=== PATIENT | male | born 1965 | race Caucasian/White ===

== ENCOUNTER → 2024-01-14 09:38 | Outpatient (REF) | payer BC, SELFPAY | LOC: RCS 09:38 | PROVIDERS: REFERRING PHYSICIAN Internal Medicine Cardiovascular Disease | DX: R01.1 Cardiac murmur, unspecified (principal) | CPT/HCPCS: 93225; 93226 ==

== ENCOUNTER → 2024-03-02 08:28 | Outpatient (REF) | payer BC, SELFPAY ==
--- NOTE | 2024-03-02 10:03 | CARDSERVLU ---
Addendum entered by Shavon Barcenas RN 03/02/24 13:37:
Procedure completed by Negin MARTINEZ on 03/02 24 ( entire previous note by Kelsey Barcenas RN).
Original Note:
Echocardiogram with Lumason completed after protocol screening completed. Allergies verified.
Patent IV site: __Right forearm 22 G PC___
IV site flushed with 0.9% NaCl pre and post administration.
Diluted bolus method utilized to enhance visualization of ventricular christian.
Total volume given: __4__ mL
Patient tolerated all procedures well without complications.
Heplock D/C ed, site clear, no redness, no edema. Pressure held for few minutes, no bleeding, 2x2 applied and taped. Pt offers no complaints.
== END ==
LOC: RCS 08:28
PROVIDERS: ATTENDING PHYSICIAN Internal Medicine Cardiovascular Disease; FAMILY PHYSICIAN Student in an Organized Health Care Education/Training Program
DX: I42.2 Other hypertrophic cardiomyopathy (principal); I35.0 Nonrheumatic aortic (valve) stenosis
CPT/HCPCS: 93306; Q9950

== ENCOUNTER → 2024-03-20 12:51 | Outpatient (REF) | payer BC, SELFPAY | LOC: RAD 12:51 | DX: F17.210 Nicotine dependence, cigarettes, uncomplicated (principal); Z72.0 Tobacco use | CPT/HCPCS: 71271 ==

== ENCOUNTER 2024-05-15 07:49 | Day surgery (SDC) | payer MEDICARE, BC, SELFPAY ==
[2024-05-15] VITALS (12 sets, daily range): BP systolic 110–137; BP diastolic 58–112; BMI 41.0
[2024-05-15 08:25] LABS: Hematocrit 44.9 % (39.0-52.0); Mean Corp Hgb Conc. 33.4 g/dL (33.0-37.0); Mean Corpuscular Hgb 29.2 pg (27.0-31.0); Mean Corpuscular Volume 87.4 fL (80.0-94.0); Mean Platelet Volume 10.1 fL (7.4-10.4); Platelet Count 273 10^3/uL (130-400); Red Blood Cell Count 5.14 10^6/uL (4.70-6.10); Red Cell Dist. Width 16.2 % (11.5-14.5); White Blood Cell Count 12.9 10^3/uL (4.8-10.8)
[2024-05-15 08:33] LABS: INR 0.98; PT 13.3 Sec (11.4-14.6)
[2024-05-15 08:34] LABS: APTT 28.3 Sec (23.4-35.0)
[2024-05-15 08:37] LABS: Blood Urea Nitrogen 14 mg/dl (9-20); Calcium 9.3 mg/dl (8.4-10.2); Carbon Dioxide 29 mmol/L (22-30); Chloride 101 mmol/L (98-107); Estimated Creatinine Clearance 92 ml/min; Glucose 99 mg/dl (70-99); Potassium 5.4 mmol/L (3.5-5.1); Sodium 139 mmol/L (135-145); eGFR > 60.00
[2024-05-15] MEDS: NSS 394 ML IV (09:16)
[2024-05-15] MEDS: LOW STRENGTH ASPIRIN 324 MG PO (09:19)
--- NOTE | 2024-05-15 14:16 | ITS.CL.CATH ---
[facility] - Catheterization
Cardiac Catheterization
Procedure Report:
RIGHT AND LEFT HEART STUDY
Date of Procedure: May 15, 2024
Referring: Dr. Woody Vora
PROCEDURES:
1. Left heart catheterization with coronary angiography
2. Hemodynamic assessment of aortic stenosis with [place] dual lumen catheter then with an AL 2/radial artery simultaneous measurement with gradual pullback from the LV apex through the aortic valve to assess for significant intraventricular
gradient
3. Ascending aortography
INDICATION: This is a 58-year-old gentleman with combined aortic stenosis and aortic insufficiency. He is followed by Dr. Vora and a recent transthoracic echocardiogram was notable for an estimated ejection fraction is 55-60% and moderate
concentric LVH. The aortic valve was thickened and calcified. The peak velocity across the aortic valve measured 4.2 m/s and the mean aortic valve gradient was 40 mmHg with a dimensionless index of 0.32 and an LVOT diameter measuring 2.3 cm. The
high gradients were more perplexing given an estimated aortic valve area by the continuity equation of 1.3 cm�. There was mild to moderate aortic insufficiency. He was also noted to have mild to moderate aortic insufficiency and there was a
question of a intraventricular gradient.
ACCESS: Right radial artery, 6 Icelandic sheath in right common femoral vein, 5 Icelandic sheath
HEMODYNAMICS : mmHg
RA (m) : 10
RV (s/d) : 35/13, 16
PA (s/d, m) : 32/22, 26
PCWP (m) : 15
AO (s/d, m) : 107/62, 81
LV (s/d) : 142/9
LVEDP : 18
Estimated Radha Cardiac Output: 4.9 L / min and Cardiac Index: 2.0 L/ min / m-2
Pulmonary vascular resistance: 2.24 Wood units or 179.6 [id number]-ii(-5)
Systemic vascular resistance: 14.5 Wood units or 1159 oppgc-pag-xx(-5)
AORTIC VALVE:
Mean Gradient: 40 mmHg
Aortic Valve Area: 0.96 cm�
CORONARY FINDINGS :
Dominance: Right
LEFT MAIN: The left main was cannulated with a JL 5. There are minor irregularities in the mid left main
LEFT ANTERIOR DESCENDING: The LAD arises normally. There is moderate coronary ectasia in the proximal to mid LAD with a 60% stenosis near the origin of the first septal electric meter technician. The mid to distal LAD tapers to a small caliber vessel approaching
the apex.
CIRCUMFLEX: The circumflex is a large-caliber nondominant vessel. OM1 is small. OM 2 is a moderate caliber vessel and the circumflex terminates in a moderate caliber OM 3.
RIGHT CORONARY ARTERY: The right coronary artery is a large-caliber vessel with significant coronary ectasia over its course. The PDA is large. The posterolateral branch is small.
ASCENDING AORTOGRAPHY: Ascending aortography was performed to assess severity of aortic insufficiency. 3+ aortic insufficiency is present
RADIATION SUMMARY: Fluoro Time (min): 11.0, Dose (mGy): 900, DAP (Gy.cm2) : 70.8
CONCLUSIONS
1. Combined severe aortic stenosis and moderate aortic insufficiency with a mean aortic valve gradient of 40 mmHg. I did not appreciate a significant subvalvular gradient when using an endhole catheter.
2. Coronary artery disease with significant mid LAD stenosis and ectatic circumflex and RCA
RECOMMENDATIONS
1. Follow-up with CT surgery to discuss aortic valve replacement and bypass grafting
Copy to: Dr. Woody Vora, Dr. Mart De La Paz
== END 2024-05-15 17:30 | disposition home or self-care (01) ==
LOC: CATH 07:49
PROVIDERS: ATTENDING PHYSICIAN Internal Medicine Interventional Cardiology; CONSULT PHYSICIAN Thoracic Surgery (Cardiothoracic Vascular Surgery); FAMILY PHYSICIAN Student in an Organized Health Care Education/Training Program; OTHER PHYSICIAN Internal Medicine Cardiovascular Disease
DX: I35.2 Nonrheumatic aortic (valve) stenosis with insufficiency (principal); I25.10 Atherosclerotic heart disease of native coronary artery without angina pectoris; Z79.82 Long term (current) use of aspirin; Z79.899 Other long term (current) drug therapy; Z79.84 Long term (current) use of oral hypoglycemic drugs
CPT/HCPCS: 93799; 80048; 85027; 85610; 85730; 93460; 93567; C1769; C1894; Q9967

== ENCOUNTER → 2024-06-20 08:12 | Outpatient (REF) | payer MEDICARE, BC, SELFPAY | LOC: RAD 08:12 | PROVIDERS: ATTENDING PHYSICIAN Thoracic Surgery (Cardiothoracic Vascular Surgery); FAMILY PHYSICIAN Student in an Organized Health Care Education/Training Program | DX: I35.0 Nonrheumatic aortic (valve) stenosis (principal); Z01.810 Encounter for preprocedural cardiovascular examination | CPT/HCPCS: 75572; Q9967 ==

== ENCOUNTER 2024-07-02 04:44 | Inpatient (IN) | payer MEDICARE, BC, SELFPAY ==
[2024-06-14 12:08] VITALS: BMI 41.4
[2024-06-14 13:08] LABS: % Eosinophils 3.4 % (0-6); % Immature Granulocytes 0.4 % (0-0.5); % Lymphocytes 27.7 % (20.5-51.1); % Monocytes 4.5 % (1.7-9.3); Absolute Basophils 0.1 10^3/uL (0-0.2); Absolute Eosinophils 0.3 10^3/uL (0-0.7); Absolute Lymphocytes 2.8 10^3/uL (1.2-3.4); Absolute Monocytes 0.5 10^3/uL (0.1-0.6); Absolute Neutrophils 6.4 10^3/uL (1.4-6.5); Hematocrit 40.9 % (39.0-52.0); Hemoglobin 13.9 g/dL (13.0-18.0); Mean Corpuscular Hgb 29.1 pg (27.0-31.0); Mean Corpuscular Volume 85.6 fL (80.0-94.0); Mean Platelet Volume 10.3 fL (7.4-10.4); Nucleated Red Blood Cells % 0 % (-); Platelet Count 273 10^3/uL (130-400); Red Blood Cell Count 4.78 10^6/uL (4.70-6.10); Red Cell Dist. Width 15.4 % (11.5-14.5); White Blood Cell Count 10.1 10^3/uL (4.8-10.8)
[2024-06-14 13:17] LABS: INR 1.02; PT 13.9 Sec (11.4-14.6)
[2024-06-14 13:18] LABS: APTT 29.2 Sec (23.4-35.0)
[2024-06-14 13:26] LABS: Urine Albumin 1+ (Neg - Trace); Urine Bilirubin Negative (Negative); Urine Character Clear (Clear); Urine Color Yellow; Urine Glucose Negative (Negative); Urine Ketone Negative (Negative); Urine Leukocyte 1+ (Negative); Urine Nitrite Negative (Negative); Urine Occult Blood Negative (Negative); Urine Specific Gravity 1.025 (<1.030); Urine Urobilinogen Negative (Neg - 1+)
[2024-06-14 13:27] LABS: ALT (SGPT) 31 U/L (0-50); AST (SGOT) 30 U/L (17-59); Albumin 4.5 g/dl (3.5-5.0); Alkaline Phosphatase 93 U/L (38-126); Blood Urea Nitrogen 14 mg/dl (9-20); Calcium 9.6 mg/dl (8.4-10.2); Carbon Dioxide 25 mmol/L (22-30); Chloride 103 mmol/L (98-107); Direct Bilirubin 0.2 mg/dl (0.0-0.4); Estimated Creatinine Clearance 110 ml/min; Glucose 89 mg/dl (70-99); Potassium 4.4 mmol/L (3.5-5.1); Sodium 136 mmol/L (135-145); Total Bilirubin 0.8 mg/dl (0.2-1.3); Total Protein 7.8 g/dl (6.3-8.2); eGFR > 60.00
[2024-06-14 13:37] LABS: Glycohemoglobin (HgbA1c) 5.7 % (4.0-5.6)
[2024-06-14 13:42] LABS: Urine Mucus Moderate
[2024-06-14 13:43] LABS: Urine Red Blood Cell 0-2 /HPF (0-2); Urine Squamous Cell 16-20 /LPF (Few)
[2024-06-14 13:44] LABS: Urine Bacteria Few (Negative)
--- NOTE | 2024-06-14 14:20 | CM ---
Chart reviewed. Met with the patient and his in PAT. 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 Reviewed preoperative and postoperative instructions and restrictions, along
with showering guidelines. Gave patient 2 soaps. Patient is agreeable to a home visit by CT Transitional RN. Plan is for the patient to return home with CT Transitional RN
[2024-07-02] VITALS (18 sets, daily range): BP systolic 98–155; BP diastolic 72–136; BMI 40.6
[2024-07-02] MEDS: PROTONIX 40 MG PO (05:18)
[2024-07-02] MEDS: MAGNESIUM OXIDE 500 MG PO (05:18)
[2024-07-02] MEDS: LOPRESSOR 25 MG PO (05:18)
[2024-07-02] MEDS: BACTROBAN 2% OINTMENT 1 APPLIC NASAL ×2 (05:18→20:29)
--- NOTE | 2024-07-02 06:00 | PTCARENOTE ---
admitted pt to 2261. pt was clipped and prepped, CHG clothes used, x2 CHG showers at home confirmed. all admission question answered and home meds reviewed. all jewelry removed. labs drawn and sent. pre op med given. awaiting CVOR.
--- NOTE | 2024-07-02 06:29 | W.CVOR.SURPR ---
CVOR Surgeon Immed Pre Op
-
I have examined this patient prior to performance of the scheduled procedure.
The patient's condition is unchanged from the time of the dictated/written History and
Physical and the patient is able to undergo the scheduled procedure.
[2024-07-02 07:32] LABS: Urine Albumin 2+ (Neg - Trace); Urine Bilirubin Negative (Negative); Urine Character Clear (Clear); Urine Glucose Negative (Negative); Urine Ketone Negative (Negative); Urine Leukocyte 1+ (Negative); Urine Nitrite Negative (Negative); Urine Occult Blood 2+ (Negative); Urine Specific Gravity 1.025 (<1.030); Urine Urobilinogen Negative (Neg - 1+)
[2024-07-02 07:34] LABS: ACT+ - POC 107 Seconds (82-134)
[2024-07-02 07:38] LABS: Urine Color Yellow
[2024-07-02 07:52] LABS: Urine Calcium Oxalate Crystals Present
[2024-07-02 07:53] LABS: Urine Bacteria Few (Negative)
[2024-07-02 09:38] LABS: ACT+ - POC 491 Seconds (82-134)
[2024-07-02 10:14] LABS: B.E. - POC -0.3 mmol/L; Glucose - POC 103 mg/dl (70-99); HCO3 - POC 25 mmol/L (21-28); Hematocrit - POC 45 % PCV (42-52); Hemodilution- POC No; Hemoglobin Calculated - POC 15.3; Ionized Calcium - POC 1.17 mmol/L (1.15-1.33); Lactate - POC 0.77 mmol/L (0.36-0.75); O2 Saturation %Calculated-POC 99.9 % (94-98); PCO2 - POC 43 mmHg (35-48); PO2 - POC 263 mmHg (83-108); Potassium - POC 4.3 mmol/L (3.5-5.1); Sodium - POC 144 mmol/L (136-145); Specimen Type - POC Arterial; pH - POC 7.38 (7.35-7.45)
[2024-07-02 10:26] LABS: ACT+ - POC 476 Seconds (82-134)
[2024-07-02 10:49] LABS: B.E. - POC 1.4 mmol/L; Glucose - POC 157 mg/dl (70-99); HCO3 - POC 29 mmol/L (21-28); Hematocrit - POC 37 % PCV (42-52); Hemodilution- POC Yes; Hemoglobin Calculated - POC 12.7; Ionized Calcium - POC 1.05 mmol/L (1.15-1.33); O2 Saturation %Calculated-POC 99.9 % (94-98); PCO2 - POC 62 mmHg (35-48); PO2 - POC 288 mmHg (83-108); Potassium - POC 6.3 mmol/L (3.5-5.1); Sodium - POC 138 mmol/L (136-145); Specimen Type - POC Arterial; pH - POC 7.29 (7.35-7.45)
[2024-07-02 10:55] LABS: ACT+ - POC 446 Seconds (82-134)
[2024-07-02 11:16] LABS: B.E. - POC 0.6 mmol/L; Glucose - POC 192 mg/dl (70-99); HCO3 - POC 27 mmol/L (21-28); Hematocrit - POC 38 % PCV (42-52); Hemodilution- POC Yes; Hemoglobin Calculated - POC 12.9; Ionized Calcium - POC 1.04 mmol/L (1.15-1.33); Lactate - POC 1.75 mmol/L (0.36-0.75); O2 Saturation %Calculated-POC 99.8 % (94-98); PCO2 - POC 48 mmHg (35-48); PO2 - POC 248 mmHg (83-108); Potassium - POC 6.5 mmol/L (3.5-5.1); Sodium - POC 140 mmol/L (136-145); Specimen Type - POC Arterial; pH - POC 7.35 (7.35-7.45)
[2024-07-02 11:26] LABS: ACT+ - POC 483 Seconds (82-134)
[2024-07-02 11:47] LABS: B.E. - POC 1.3 mmol/L; Glucose - POC 179 mg/dl (70-99); HCO3 - POC 27 mmol/L (21-28); Hematocrit - POC 39 % PCV (42-52); Hemodilution- POC Yes; Hemoglobin Calculated - POC 13.4; Ionized Calcium - POC 1.05 mmol/L (1.15-1.33); Lactate - POC 1.83 mmol/L (0.36-0.75); O2 Saturation %Calculated-POC 99.8 % (94-98); PCO2 - POC 48 mmHg (35-48); PO2 - POC 244 mmHg (83-108); Potassium - POC 5.7 mmol/L (3.5-5.1); Sodium - POC 141 mmol/L (136-145); Specimen Type - POC Arterial; pH - POC 7.37 (7.35-7.45)
[2024-07-02 11:58] LABS: ACT+ - POC 553 Seconds (82-134)
--- NOTE | 2024-07-02 12:32 | CM ---
pt in OR today, cm to follow.
[2024-07-02 12:44] LABS: B.E. - POC 0.2 mmol/L; Glucose - POC 152 mg/dl (70-99); HCO3 - POC 26 mmol/L (21-28); Hematocrit - POC 37 % PCV (42-52); Hemodilution- POC Yes; Hemoglobin Calculated - POC 12.7; Ionized Calcium - POC 1.06 mmol/L (1.15-1.33); Lactate - POC 2.08 mmol/L (0.36-0.75); PCO2 - POC 46 mmHg (35-48); PO2 - POC 403 mmHg (83-108); Potassium - POC 5.5 mmol/L (3.5-5.1); Sodium - POC 144 mmol/L (136-145); Specimen Type - POC Arterial; pH - POC 7.36 (7.35-7.45)
[2024-07-02 12:46] LABS: ACT+ - POC 109 Seconds (82-134)
[2024-07-02 12:47] LABS: B.E. - POC -3.4 mmol/L; Glucose - POC 151 mg/dl (70-99); HCO3 - POC 22 mmol/L (21-28); Hematocrit - POC 34 % PCV (42-52); Hemodilution- POC Yes; Hemoglobin Calculated - POC 11.7; Lactate - POC 2.52 mmol/L (0.36-0.75); O2 Saturation %Calculated-POC 99.7 % (94-98); PCO2 - POC 38 mmHg (35-48); PO2 - POC 196 mmHg (83-108); POC Comment POST; Potassium - POC 3.8 mmol/L (3.5-5.1); Sodium - POC 145 mmol/L (136-145); Specimen Type - POC Arterial; pH - POC 7.37 (7.35-7.45)
--- NOTE | 2024-07-02 13:23 | W.IMMPOSTOP ---
Addendum entered and electronically signed by Mart De La Paz MD 07/02/24 14:24:
[id number]
Original Note:
Surgical Immed Post Op Note
-
CARDIAC SURGERY OPERATIVE NOTE:
Preoperative Dx:
Severe aortic stenosis (P/M: 71/40, Seismic Observer 4.22, MIKE 0.96, mean gradient at cath 40)
Moderate aortic insufficiency
Single vessel CAD (60% LAD stenosis near 1st septal)
Ectasia of RCA
Postoperative Dx:
Same
Procedures:
1) Median sternotomy
2) Takedown of ERIK (narrow pedicle)
3) CABG x 1 (ERIK to LAD)
4) AVR (#25 Inspiris Resilia)
Surgeon:
Mart De La Paz M.D.
Assistants:
Chaya De SantiagoA.-CAditi; curatorial assistant throughout
Chaya MarroquinAAditi-CAditi; [id number] sternotomy closure
Anesthesia:
Ravi Mosley M.D. and Paulette Villeda, C.R.N.A.
Perfusion:
Kristine Lozano, C.C.P.; CPB: 143min, XC: 118min
Findings:
ERIK was healthy appearing conduit w/ very brisk blood flow; ELD 2.5mm
LAD was not visible on the epicardial surface, but was encountered at its midpoint just distal to D2 under approximately 0.5cm of epicardial adipose. Scant scattered calcification, ELD 2.5mm
There was a very dense, calcified adhesion between the mid-ascending aorta and lateral pericardium. This was lysed complete w/ off-on pump dissection. After aortotomy, the intima of the aorta in this area was visually inspected and had a normal
gross appearance w/o any calcifications in this area. Total EITAN time ~ 10min w/ combination of blunt, sharp, and electrocautery aided dissection
AV was trileaflet w/ heavily calcified leaflets w/ moderate annular extension circumferentially
There was no significant subvalvular calcifications
There was SIGNIFICANT non-coronary collateral flow from large LM and some from large RM - I narrowed cardioplegic dosing given this significant flow
#25mm Nichols Inspiris Resilia valve secured w/ 15 interrupted, pledgetted valve sutures and CorKnots
Post-ADAM: LVEF 60-65%, no RWMA, trace to mild MR, well-seated AVR w/ no PVL/AI, mean gradient 7mmHg, trace TR
Transfusions:
None
Implants:
Nichols Inspiris Resilia, 25mm, Model [id number]; SN: [id number]
CT x 3 (L pleural, inferior mediastinal, superior mediastinal)
Epicardial V-wires x 2
Sternal wires x 7
Sternal 'X' plate w/ 4 - 14mm and 4 - 12mm screws
Sternal 'Square' place w/ 4 - 12mm screws
Complications:
None
Condition:
63 sinus (-0.2/-0.1); 96/65; 41/26; CVP 18; 96%
GTTS: levophed 2, insulin 1, precedex 0.5
Stable/guarded to CVICU
--- NOTE | 2024-07-02 13:24 | CON.INTV ---
Consultation
Consultation Request
Date/Time Consultation Requested: 07/02/2024 - 1304
Date/Time Consultation Performed: 07/02/2024 - 1320
Requesting Provider: CECILIO Negrete
Performing Provider: Dr. Lundberg
Reason for Consultation: s/p CABG + SAVR
Medical History
-
Chief Complaint: Elective CABG + aortic valve replacement
History of Present Illness:
58-year-old male active tobacco smoker with a past medical history of severe aortic stenosis, single-vessel CAD, DM type II, GERD, hiatal hernia, hepatic steatosis, sleep apnea, mixed hyperlipidemia, hypertension, anxiety, depression, and knee
osteoarthritis who presents for CABG + aortic valve replacement. Patient known to the cardiothoracic surgery service with last visit on 05/30/[address] De La Paz. Transthoracic echo from 03/02/2024 showed moderate�severe aortic stenosis with
peak/mean gradients of 71/40 mmHg, respectively. The MIKE was 1.3 cm�. The mean gradient had worsened from last echo in April 2022 when it was 26 mmHg. Patient had a left heart catheterization on 05/15/24 showing significant mid LAD stenosis with
an ectatic circumflex and RCA. Cardiothoracic intervention was discussed and the risks and benefits were reviewed. Patient agreed to intervention, and today he underwent a CABG x 1 with aortic valve replacement with a #25 Inspiris Resilia. There
were no complications and patient was transferred to the CVICU postoperatively for further care, with academic registrar services consulted for additional management/recommendations.
When I saw the patient, he had just been extubated, currently resting in bed in no acute distress on 6 L/min saturating 96%, heart rate 68 and BP via A-line: 115/71 (NIBP: 108/88). PAP 36/16 and CO/CI: 5.26/2.18. Currently on Levophed at 2
mcg/min, and insulin drip at 3.5 units/hr.
PMHx: History of reflux, DM type II, cervical radiculopathy, tenosynovitis of fingers, knee OA, hyperlipidemia, hiatal hernia, umbilical hernia, abdominal aorta atherosclerosis, liver steatosis, sleep apnea, colonic polyps, HDL deficiency,
hypertension, insomnia, obesity, anxiety, depression, tobacco use, history of rheumatic fever (at age 15)
PSHx: Cervical spine fusion of C4-5, bilateral TKA (partials)
Past Medical History
Past Medical History: Other (Above as per HPI)
Past Surgical History: Other (Above as per HPI)
Social History
Tobacco: Smoker (1.5 PPD)
Alcohol: None
Personal:
Living: With Family
Employment: Employed (Works with a [employer])
Family History
Family History: CAD (Mother + paternal uncle), Cancer (Father: Colon cancer; Son: Skin cancer) and Other (Mother: of stroke)
Allergies / Home Medications
Allergies
Allergy/AdvReac Type Severity Reaction Status Date / Time
No Known Allergies Allergy Verified 06/12/24 12:04
Home Medications
�Medication �Instructions �Recorded �Confirmed �Last Taken �Type
atorvastatin 80 mg tablet 80 mg PO QPM High Cholesterol 05/15/24 07/02/24 06/30/24 06:00 History
clonazepam 2 mg tablet 2 mg PO HS Mental Health/Anxiety 05/15/24 07/02/24 07/01/24 22:00 History
diltiazem HCl 180 mg 180 mg PO BID Heart 05/15/24 07/02/24 06/29/24 06:00 History
tablet,extended release 24 hr Disease/Condition
(Matzim LA)
escitalopram oxalate 20 mg tablet 20 mg PO DAILY Mental 05/15/24 07/02/24 06/30/24 06:00 History
(Lexapro) Health/Anxiety
lisinopril 5 mg tablet 5 mg PO DAILY Blood Pressure 05/15/24 07/02/24 06/29/24 06:00 History
metformin 500 mg tablet 500 mg PO DAILY Diabetes 05/15/24 07/02/24 06/30/24 06:00 History
tirzepatide 5 mg/0.5 mL 5 mg SC SA Diabetes 05/15/24 07/02/24 06/24/24 06:00 History
subcutaneous pen injector
(Karissa)
bupropion HCl 150 mg 24 hr tablet, 150 mg PO BID Mental Health/Anxiety 06/12/24 07/02/24 06/30/24 06:00 History
extended release
nicotine (polacrilex) 4 mg gum 4 mg buccal Q2H PRN quit smoking 06/12/24 07/02/24 07/01/24 06:00 History
aspirin 81 mg chewable tablet 81 mg PO DAILY Blood Clot 07/02/24 07/02/24 06/30/24 06:00 History
Prevention/Tx
Review of Systems
-
Unable to Obtain full review of systems at this time due to: Acuity
Vitals / Labs / Diagnostic Testing
Vital Signs
Temp Pulse Resp BP Pulse Ox
98.2 F 70 22 120/77 96
07/02/24 05:03 07/02/24 05:18 07/02/24 05:03 07/02/24 05:18 07/02/24 05:03
Diagnostic Testing:
Physical Exam
-
HEENT: Normocephalic and Anicteric
Cardiovascular: S1/S2 and Peripheral Edema (negative)
Respiratory: Wheeze (negative), Rales (negative), Rhonchi (negative) and Non-Labored Respirations
GI: Soft, Non Distended, Non Tender and Normal Bowel Sounds
Neurology: Tremors (negative) and Other (Lethargic)
Skin: Warm and Dry
General: Respiratory Distress (negative), Comfortable, Fever (negative) and Chills (negative)
Assessment
-
Assessment: 58-year-old male active tobacco smoker with a past medical history of severe aortic stenosis, single-vessel CAD, DM type II, GERD, hiatal hernia, hepatic steatosis, sleep apnea, mixed hyperlipidemia, hypertension, anxiety, depression,
and knee osteoarthritis who presents for CABG + aortic valve replacement. Patient known to the cardiothoracic surgery service with last visit on 05/30/[address] De La Paz. Transthoracic echo from 03/02/2024 showed moderate�severe aortic stenosis
with peak/mean gradients of 71/40 mmHg, respectively. The MIKE was 1.3 cm�. The mean gradient had worsened from last echo in April 2022 when it was 26 mmHg. Patient had a left heart catheterization on 05/15/24 showing significant mid LAD stenosis
with an ectatic circumflex and RCA. Cardiothoracic intervention was discussed and the risks and benefits were reviewed. Patient agreed to intervention, and today he underwent a CABG x 1 with aortic valve replacement with a #25 Inspiris Resilia.
There were no complications and patient was transferred to the CVICU postoperatively for further care, with academic registrar services consulted for additional management/recommendations.
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
HDL deficiency, hypertension, insomnia, obesity, anxiety, depression, tobacco use, history of rheumatic fever (at age 15)
Impression:
#Severe aortic stenosis with moderate aortic insufficiency s/p surgical aortic valve replacement (#25 Inspiris Resilia) � POD #0
#Single-vessel CAD s/p CABG x 1 (ERIK to LAD) � POD #0
#Acute anemia due to above
#Hyperglycemia
#Hyperkalemia
#Lactic acidosis
#DM type II
#Hyperlipidemia
#Hepatic steatosis
#History of sleep apnea
#Anxiety/depression
#Active tobacco use disorder
#Centrilobular emphysema
#RUL lung nodule (5mm - stable from 03/2024 until 06/2024)
Plan:
Patient was successfully extubated in the CVICU and is currently on 6 L/min nasal cannula breathing comfortably and saturating 96%
Wean down supplemental O2 flow rate to maintain SpO2 >90-94%
prn nebulized bronchodilators - not currently bronchospastic
Encourage incentive spirometer q1hr while awake
Pulmonary artery catheter parameters will be followed
Pressors/antihypertensive/inotropes/diuretics will be provided as needed
Maintain MAP>65
Replete electrolytes with K>4, Mg>2
Monitor chest tube output (mediastinal chest tubes x2 + left pleural x1)
Monitor hemoglobin
Monitor platelet count and coags
Transfuse blood products as needed to maintain Hb>7g/dL, plt>50k (given post-operative status)
CT surgery managing chest tubes
Monitor blood sugar to maintain euglycemia with goal BG 110-140
Insulin drip per protocol
Aspiration precautions
DVT prophylaxis
Early nutrition
Early mobilization
Outpatient LDCT chest for lung cancer screening as well as RUL lung nodule surveillance as he is high risk given he is an active smoker - next CT chest due in 03/2025
Critical care statement: A total of 41 minutes of critical care time was provided for this patient today. This includes management of ventilator, spontaneous breathing trial, arterial blood gases, pressors, of unstable vital signs, evaluation of the
patient at bedside, reviewing the patient's pertinent medical records including radiographs, microbiology, laboratory evaluations, and discussion with primary team and critical care nursing.
--- NOTE | 2024-07-02 14:00 | PTCARENOTE ---
Received patient from CVOR @ 1400 Intubated and sedated. PERRLA. Received on Levo, Insulin, and Precedex see MAR for details. NSR BP 97/57 HR 55. V-wires set to back up 30/10/0.2. Heart sounds audible. Rub noted. Radial and pedal pulses
present bilaterally. No edema noted. Endotracial tube size 8 and 24 @ the lip. Vent settings 500/40/14/5. POX 95%. Lungs sounds diminished anterior bilaterally. CTx3 draining red fluid WNL. Set to wall suction @ -20 w/ no crepitus, tidaling,
or air leaks. Bowel sounds hypoactive. Quesada draining clear yellow urine WNL. Sternal incision dressing dry and intact. SALVATORE rockwell w/ jace @ 47. CI 2.04 CO 4.94. PAP 49/23. Left A-line. Right AC and left hand PIV. All lines zeroed and
leveled.
[2024-07-02 14:16] LABS: Glucose - Point of Care 151 mg/dl (70-99)
[2024-07-02 14:26] LABS: Hematocrit 34.3 % (39.0-52.0); Hemoglobin 11.7 g/dL (13.0-18.0); Platelet Count 239 10^3/uL (130-400)
[2024-07-02 14:36] LABS: INR 1.26; PT 16.1 Sec (11.4-14.6)
--- NOTE | 2024-07-02 14:36 | W.PN.CARDCBS ---
Addendum entered and electronically signed by Ernesto Staton MD 07/02/24 15:05:
I saw and examined the patient.
The CAMERA ENGINEER or PA's note was reviewed and I agree with the note.
Comment: General: Sedate and intubated
Neck: Supple, no JVD, HJR, carotids +2 B/L, no bruits bilaterally.
Heart: Non displaced PMI, RRR, no murmurs, No S3, S4, no rubs.
Lungs: Scattered rhonchi
Sternal dressings noted
Extremities: No clubbing, cyanosis or edema bilaterally.
Neuro: Sedate
Jose has a history of rheumatic fever, hypertrophic cardiomyopathy, hyperlipidemia, tobacco abuse, type 2 diabetes, severe symptomatic aortic stenosis as well as CAD. He is seen status post AVR with #25 Inspiris Resilia and CABG x 1 with FRIEND to
LAD. He is sedate and intubated at present. He is on low-dose Levophed. Plan is for extubation later today. Discussed with CT surgery nursing. Stable cardiology status in sinus rhythm at present. PA pressure 40/25
Original Note:
Today's Communication / Plan
-
Wean sedation with anticipated extubation this afternoon
Wean Levophed as hemodynamics allow
Continue to follow closely on telemetry
Impression / Plan
-
PCP: Jace Anne
Jewelry Model Maker: Woody Vora
Impression:
Elective admission 07/02/2024 for severe symptomatic aortic stenosis, coronary artery disease
s/p aortic valve replacement #25 Inspiris Resilia (07/02/2024)
s/p CABG x 1 FRIEND-LAD (07/02/2024)
Rheumatic fever at age 15
Hypertrophic cardiomyopathy
Hyperlipidemia
Tobacco abuse
Type 2 diabetes
Hiatal hernia
Sleep apnea with CPAP
Obesity
Depression
Cervical spine fusion
Bilateral knee replacements
Cardiac catheterization 05/15/2024: LM: LI. LAD: Proximal to mid 60% stenosis new origin of first septal wreath maker. Left circumflex: LI. RCA: Significant ectasia over its course. AORTIC VALVE:Mean Gradient: 40 mmHg; Aortic Valve Area: 0.96 cm�.
Estimated Radha Cardiac Output: 4.9 L / min and Cardiac Index: 2.0 L/ min / m-2. Pulmonary vascular resistance: 2.24 Wood units or 179.6 [id number]-[id number](-5). Systemic vascular resistance: 14.5 Wood units or 1159 eqort-css-js(-5)
Postop ADAM: LVEF 55 to 60%. S/P AVR #25 bioprosthetic. The aortic valve is well-seated with no paravalvular leak. The mean gradient is 13 mmHg with a cardiac index of 2 L/min/sq. meters. Upon chest closure the
gradient is 7 mmHg with stable hemodynamics. Otherwise unchanged exam.
Echo 03/02/2024: EF 55 to 60%. Mild concentric LVH. Moderate to severe aortic stenosis with peak/mean gradient 71/40 mmHg. The aortic valve peak velocity measures 4.22 m/sec and the dimensionless index is
0.32. There is mild to moderate aortic insufficiency
Plan:
-Presents 07/02/2024 with severe symptomatic aortic stenosis and coronary artery disease.
-s/p aortic valve replacement #25 Inspiris Resilia and CABG x 1 FRIEND-LAD (07/02/2024)
-Patient seen immediately postop. Remains intubated and sedated.
-Wean sedation with anticipation of extubation later this afternoon
-Hemodynamically stable on Levophed at
-Postop EKG reviewed showing sinus rhythm with no acute ischemia
-Postop chest x-ray stable
-Monitor and trend renal function, electrolytes and hemoglobin, immediately postop 11.7. No transfusion provided intraoperatively
Progress Note - Jewelry Model Maker
Subjective
Date of Service: July 02, 2024
Patient seen and examined immediately postoperatively. Remains intubated and sedated. Currently requiring 2 mcg/min of Levophed
Objective
Labs:
Labs
Hgb 11.7 g/dL (13.0-18.0) L 07/02/24 14:11
Hct 34.3 % (39.0-52.0) L 07/02/24 14:11
Plt Count 239 10^3/uL (130-400) 07/02/24 14:11
PT 13.9 Sec (11.4-14.6) 06/14/24 12:21
INR 1.02 06/14/24 12:21
APTT 29.2 Sec (23.4-35.0) 06/14/24 12:21
Sodium 136 mmol/L (135-145) 06/14/24 12:21
Potassium 4.4 mmol/L (3.5-5.1) 06/14/24 12:21
BUN 14 mg/dl (9-20) 06/14/24 12:21
Creatinine 1.0 mg/dL (0.7-1.3) 06/14/24 12:21
Glucose 89 mg/dl (70-99) 06/14/24 12:21
Vital Signs and I&O:
Vital Signs
Temp Pulse Resp BP Pulse Ox
97.5 F 68 9 120/77 95
07/02/24 14:00 07/02/24 14:15 07/02/24 14:15 07/02/24 05:18 07/02/24 14:15
Vital Signs
Temp Pulse Resp BP Pulse Ox
97.5 F 68 9 120/77 95
07/02/24 14:00 07/02/24 14:15 07/02/24 14:15 07/02/24 05:18 07/02/24 14:15
Intake & Output
06/30/24 07/01/24 07/02/24 07/03/24
06:59 06:59 06:59 06:59
Intake Total 91.5 / 91.5
Output Total 85 / 85
Balance 6.5 / 6.5
Physical Exam
Physical Exam
GEN: Intubated, sedated
HEENT: supple, anicteric, mmm
LUNGS: CTA, no wheezes/rales
CV: Reg, S1/S2, no murmur, positive chest tube rub, no gallop
ABD: soft, BS+, NT/ND
EXT: No edema, clubbing or cyanosis
NEURO: Intubated/sedated unable to assess
SKIN: No rash, warm, dry, pink
[2024-07-02 14:37] LABS: APTT 26.6 Sec (23.4-35.0); B.E. -1.9 mmol/L; HCO3 24.7 mmol/L (21-28); Ionized Calcium 1.15 mMOL/L (1.15-1.33); O2 Saturation % 97.4 % (94-98); PCO2 49 mmHg (35-48); PO2 85 mmHg (83-108); Potassium 4.9 mMOL/L (3.5-5.1); Sodium 136 mMOL/L (136-145); pH 7.31 (7.35-7.45)
[2024-07-02 14:39] LABS: O2 Therapy vent
[2024-07-02 14:42] LABS: Blood Urea Nitrogen 18 mg/dl (9-20); Estimated Creatinine Clearance 108 ml/min; Glucose 150 mg/dl (70-99); Magnesium 3.2 mg/dl (1.6-2.3)
[2024-07-02] MEDS: ANCEF 10 IV ×2 (14:44→14:45)
[2024-07-02] MEDS: CALCIUM GLUCONATE 100 IV (14:45)
--- NOTE | 2024-07-02 14:50 | PTCARENOTE ---
Labs drawn. CPAP trial started per CT ENERGY AUDITOR Jammie.
[2024-07-02 15:04] LABS: Glucose - Point of Care 147 mg/dl (70-99)
[2024-07-02 15:25] LABS: B.E. - POC 0.8 mmol/L; Blood Urea Nitrogen - POC 18 mg/dl (3-120); Chloride - POC 108 mmol/L (96-111); Glucose - POC 158 mg/dl (70-99); HCO3 - POC 27 mmol/L (21-28); Hematocrit - POC 39 % PCV (42-52); Hemodilution- POC Yes; Hemoglobin Calculated - POC 13.4; Ionized Calcium - POC 1.27 mmol/L (1.15-1.33); Lactate - POC 1.83 mmol/L (0.36-0.75); O2 Saturation %Calculated-POC 95.5 % (94-98); PCO2 - POC 48 mmHg (35-48); PO2 - POC 83 mmHg (83-108); Potassium - POC 5.2 mmol/L (3.5-5.1); Sodium - POC 143 mmol/L (136-145); Specimen Type - POC Arterial; pH - POC 7.36 (7.35-7.45)
--- NOTE | 2024-07-02 15:35 | PTCARENOTE ---
Labs drawn. CT BONUS CLERK Jammie notified. Ordered to extubate per CT BONUS CLERK Jammie. Respiratory at bedside. Extubated @1535 to 6L NC. POX 95%..
[2024-07-02] MEDS: DILAUDID 0.5 MG IV (15:39)
[2024-07-02 15:58] LABS: Glucose - Point of Care 148 mg/dl (70-99)
[2024-07-02] MEDS: NEURONTIN PO ×2 (16:08→16:09)
[2024-07-02] MEDS: TYLENOL PO (16:09)
[2024-07-02] MEDS: NSS 500 IV (16:09)
[2024-07-02] MEDS: OFIRMEV 100 IV (16:09)
[2024-07-02] MEDS: NOVOLOG FLEXPEN SC ×2 (16:09→17:12)
[2024-07-02] MEDS: TORADOL 15 MG IV (16:10)
[2024-07-02 17:04] LABS: Glucose - Point of Care 109 mg/dl (70-99)
[2024-07-02] MEDS: PACERONE PO (17:12)
[2024-07-02] MEDS: LOW STRENGTH ASPIRIN 81 MG PO (18:05)
[2024-07-02 18:23] LABS: Glucose - Point of Care 127 mg/dl (70-99)
[2024-07-02 18:53] LABS: Hematocrit 36.1 % (39.0-52.0); Hemoglobin 12.2 g/dL (13.0-18.0); Platelet Count 263 10^3/uL (130-400)
[2024-07-02] MEDS: LIPITOR 80 MG PO (19:00)
[2024-07-02 19:10] LABS: Glucose - Point of Care 125 mg/dl (70-99)
--- NOTE | 2024-07-02 19:10 | PTCARENOTE ---
Assessment unchanged. VSS. CHG cloth bath and leads changed.
[2024-07-02] MEDS: ANCEF 5 IV (20:28)
[2024-07-02] MEDS: SENOKOT-S 1 TABLET PO (20:28)
[2024-07-02 21:09] LABS: Glucose - Point of Care 95 mg/dl (70-99)
[2024-07-02] MEDS: PACERONE 200 MG PO (22:01)
[2024-07-02] MEDS: TYLENOL 1000 MG PO (22:02)
[2024-07-02] MEDS: NEURONTIN 100 MG PO (22:02)
[2024-07-02] MEDS: ROXICODONE 5 MG PO (22:05)
--- NOTE | 2024-07-02 23:00 | PTCARENOTE ---
assumed care of patient @ 2300. received pt laying in bed, Aox3. SR on tele HR 70s, BP 120s/60s arterially. cuff pressure 10 points lower on average. PAs 20s/10s, CVP ~ 5 . +pulses, no edema. rub auscultated. V wires to VVI backup 30,10,.2, no
pacing noted. Lungs clear, diminished on 4L satting mid 90s. 3 chest tubes present to wall suction with slight tidaling, no air leak or crepitus. BS hypoactive, tolerating water. Quesada present draining clear yellow urine. MSI with aquacel with scant
old drainage marked. Chest tube dressing CDI. recieved on insulin per protocol. pt resting comfortably w call vigil within reach .
[2024-07-02 23:09] LABS: Glucose - Point of Care 108 mg/dl (70-99)
[2024-07-03] VITALS (21 sets, daily range): BP systolic 100–120; BP diastolic 58–82; PULSE 81; O2SAT 91–94; BMI 41.3
--- NOTE | 2024-07-03 00:02 | W.PN.CT ---
Addendum entered and electronically signed by CECILIO Ware 07/06/24 10:42:
CDI QUERY RESPONSE:
After study respiratory failure has been ruled out
Original Note:
Today's Communication / Plan
-
- Doing well. No major events overnight
- Tele review: NSR, occasional PVC, has V wires
- Successfully extubated to LFNC @ 1530 hrs yesterday
- Gtt's: Levophed OFF, insulin titrated
- CVP 11, PA 35/12, CO 7.64, CI 3.16, SVR 733- De-lined this AM
- CTs 2med 85/115, L pleural 10/45 in 12/24 hrs
- UOP 550/1000 in 12/24 hrs
- wean down/off O2, IS use reinforced
- Continue current meds: amio, asa, atorvastatin, metoprolol 12.5 mg, mag ox, PPI, Plavix
- continue outpatient meds: bupropion, escitalopram
- Multimodal pain management (APAP, gabapentin, Roxicodone)
- Bowel regimen
- OOB, ambulate as tolerated
Assessment / Plan
-
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 De La Paz POD #1
post op ADAM: LVEF 60-65%, no RWMA, trace to mild MR, well-seated AVR w/ no PVL/AI, mean gradient 7mmHg
Hypertrophic cardiomyopathy
Hyperlipidemia
Tobacco abuse
Type 2 diabetes
Hiatal hernia
Sleep apnea with CPAP
Obesity
Depression
Cervical spine fusion
Bilateral knee replacements
Acute hypoxic respiratory failure
Acute post operative pain
Acute post op hypotension
Subjective
Procedure
s/p CABG x1 (ERIK to LAD), AVR (#25 Inspiris Resilia) with Dr. De La Paz 07/02/24
-
Date of Service: July 03, 2024
Objective Data
-
PT 16.1 Sec (11.4-14.6) H 07/02/24 14:11
INR 1.26 07/02/24 14:11
APTT 26.6 Sec (23.4-35.0) 07/02/24 14:11
Vital Signs
Vital Signs
Temp Pulse Resp BP Pulse Ox
99.7 F 77 21 113/76 95
07/02/24 22:59 07/02/24 23:00 07/02/24 23:00 07/02/24 23:00 07/02/24 23:00
CT Intake/Output/Weight
07/02/24 07/02/24 07/03/24
06:59 18:59 06:59
Intake Total 273.1 / 421.3 148.2 / 421.3
Output Total 515 / 870 355 / 870
Balance -241.9 / -448.7 -206.8 / -448.7
SaO2: 95
Physical Exam
-
General: Awake, Oriented and AOx3
Cardiovascular: Regular rate & rhythm, No Murmurs and No Rub
Respiratory: Clear, Equal and Decreased Breath Sounds
Sternum: Stable
Incision: Clean, Dry and Intact
Extremities: No Edema and No Erythema
Data Reviewed
-
Lab Results: Results Reviewed
Medications: Active Meds Reviewed
Chest X-Ray: Report Reviewed
ECG: Report Reviewed
[2024-07-03 01:02] LABS: Glucose - Point of Care 113 mg/dl (70-99)
[2024-07-03] MEDS: ROXICODONE 5 MG PO ×2 (02:23→06:26)
[2024-07-03 02:48] LABS: Mixed Venous O2 Saturation 59.2 %
[2024-07-03 02:51] LABS: Hematocrit 32.4 % (39.0-52.0); Mean Corpuscular Hgb 29.3 pg (27.0-31.0); Mean Corpuscular Volume 86.4 fL (80.0-94.0); Mean Platelet Volume 10.2 fL (7.4-10.4); Platelet Count 231 10^3/uL (130-400); Red Blood Cell Count 3.75 10^6/uL (4.70-6.10); Red Cell Dist. Width 15.6 % (11.5-14.5); White Blood Cell Count 21.7 10^3/uL (4.8-10.8)
[2024-07-03] MEDS: TORADOL 15 MG IV ×2 (03:11→15:28)
[2024-07-03] MEDS: ANCEF 5 IV ×2 (03:14→12:26)
[2024-07-03 03:23] LABS: ALT (SGPT) 24 U/L (0-50); AST (SGOT) 64 U/L (17-59); Albumin 3.4 g/dl (3.5-5.0); Alkaline Phosphatase 88 U/L (38-126); Blood Urea Nitrogen 20 mg/dl (9-20); Calcium 8.3 mg/dl (8.4-10.2); Carbon Dioxide 25 mmol/L (22-30); Chloride 107 mmol/L (98-107); Estimated Creatinine Clearance 120 ml/min; Glucose 108 mg/dl (70-99); Magnesium 2.4 mg/dl (1.6-2.3); Potassium 4.5 mmol/L (3.5-5.1); Sodium 138 mmol/L (135-145); Total Bilirubin 0.5 mg/dl (0.2-1.3); Total Protein 6.1 g/dl (6.3-8.2); eGFR > 60.00
--- NOTE | 2024-07-03 03:40 | PTCARENOTE ---
labs drawn and sent , ekg done. tonny and toradol given for pain. no other change in assessment .
[2024-07-03 04:03] LABS: Glucose - Point of Care 97 mg/dl (70-99)
--- NOTE | 2024-07-03 06:00 | PTCARENOTE ---
a line, swan and herrera removed per orders. pt stood up OOB to scale and chair with steady gait. 5 of tonny given for pain post ambulation. now resting comfortably in chair with call vigil within reach .
[2024-07-03 06:06] LABS: Glucose - Point of Care 103 mg/dl (70-99)
[2024-07-03] MEDS: TYLENOL 1000 MG PO ×3 (06:25→22:19)
--- NOTE | 2024-07-03 07:32 | W.PN.ANS.POP ---
Anesthesia Post Operative
- Anesthesia Post Op Note
Vital Signs Stable-See Nursing Note: Yes
Airway Patent: Yes
Adequate Pain Control: Yes
Change in Mental Status: No
Current Postoperative Nausea & Vomiting: No
Anesthesia Complications: No
General Anesthetic Recall: No
Unplanned Admission: No
Post Op Hydration Adequate: Yes
--- NOTE | 2024-07-03 07:50 | PTCARENOTE ---
pt received from previous RN, oriented, OOB in chair. SR on the monitor, HR 80s. distant heart tones. +rub. V wires set to VVI 30/10. SBP 110s. palpable pulses. pt on 4LNC, 93% POX. lungs diminished. IS encouraged. CT x3, no air leak or crepitus, +
tidaling. pt abdomen round, s/n, denies n/v. hypoactive BS. pt due to void post Quesada removal. sternal dressing intact, old drainage. chest tube dressing c/d/i. RIJ Cordis maintained. PIV x2. insulin gtt running as ordered. see worklist for VS, I&O,
and assessment.
[2024-07-03] MEDS: NOVOLOG FLEXPEN SC (07:59)
[2024-07-03] MEDS: FLEXERIL 5 MG PO ×2 (07:59→16:29)
[2024-07-03] MEDS: PLAVIX 75 MG PO (08:18)
[2024-07-03] MEDS: PROTONIX 40 MG PO (08:18)
[2024-07-03] MEDS: LOW STRENGTH ASPIRIN 81 MG PO (08:18)
[2024-07-03] MEDS: MAGNESIUM OXIDE 500 MG PO ×2 (08:19→19:47)
[2024-07-03] MEDS: LOPRESSOR 12.5 MG PO ×2 (08:19→19:47)
[2024-07-03] MEDS: WELLBUTRIN XL (24 hour extended release) 150 MG PO ×2 (08:19→19:47)
[2024-07-03] MEDS: NEURONTIN 100 MG PO ×3 (08:19→22:19)
[2024-07-03] MEDS: PACERONE 200 MG PO ×3 (08:19→22:19)
[2024-07-03] MEDS: BACTROBAN 2% OINTMENT 1 APPLIC NASAL ×2 (08:20→19:48)
[2024-07-03] MEDS: SENOKOT-S 1 TABLET PO ×2 (08:20→19:48)
[2024-07-03 08:26] LABS: Glucose - Point of Care 130 mg/dl (70-99)
--- NOTE | 2024-07-03 08:28 | W.PN.INTV ---
Today's Communication / Plan
Recommendations
Up OOB as tolerated
Cardiac rehab consult
Pain control
Removal of mediastinal chest tubes x 2 per cardiothoracic surgery service
Goal BG 110�140
Outpatient LDCT chest imaging given his significant tobacco smoking history as well as a known history of an RUL nodule
Patient now being downgraded to CVICU�telemetry status. No additional recommendations at this time. Machine I Coremaker/Pulmonary service will now sign off. Please reconsult if there are any additional questions/concerns, or if patient's respiratory
status deteriorates.
Assessment
-
Assessment: 58-year-old male active tobacco smoker with a past medical history of severe aortic stenosis, single-vessel CAD, DM type II, GERD, hiatal hernia, hepatic steatosis, sleep apnea, mixed hyperlipidemia, hypertension, anxiety, depression,
and knee osteoarthritis who presents for CABG + aortic valve replacement. Patient known to the cardiothoracic surgery service with last visit on 05/30/[address] La Paz. Transthoracic echo from 03/02/2024 showed moderate�severe aortic stenosis
with peak/mean gradients of 71/40 mmHg, respectively. The MIKE was 1.3 cm�. The mean gradient had worsened from last echo in April 2022 when it was 26 mmHg. Patient had a left heart catheterization on 05/15/24 showing significant mid LAD stenosis
with an ectatic circumflex and RCA. Cardiothoracic intervention was discussed and the risks and benefits were reviewed. Patient agreed to intervention, and on 07/02/2024 he underwent a CABG x 1 with aortic valve replacement with a #25 Inspiris
Resilia. There were no complications and patient was transferred to the CVICU postoperatively for further care, with oncology pharmacist services consulted for additional management/recommendations.
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
HDL deficiency, hypertension, insomnia, obesity, anxiety, depression, tobacco use, history of rheumatic fever (at age 15)
Impression:
#Severe aortic stenosis with moderate aortic insufficiency s/p surgical aortic valve replacement (#25 Inspiris Resilia) � POD #1
#Single-vessel CAD s/p CABG x 1 (ERIK to LAD) � POD #1
#Acute anemia due to above
#Hyperglycemia � resolved
#Hyperkalemia � resolved
#Lactic acidosis � resolved
#DM type II
#Hyperlipidemia
#Hepatic steatosis
#History of sleep apnea
#Anxiety/depression
#Active tobacco use disorder
#Centrilobular emphysema
#RUL lung nodule (5mm - stable from 03/2024 until 06/2024)
Plan:
Patient was successfully extubated in the CVICU and is currently on 4 L/min nasal cannula breathing comfortably and saturating 91-92%
Wean down supplemental O2 flow rate to maintain SpO2 >90-94%
prn nebulized bronchodilators - not currently bronchospastic
Encourage incentive spirometer q1hr while awake
Pulmonary artery catheter parameters will be followed
Pressors/antihypertensive/inotropes/diuretics will be provided as needed
Maintain MAP>65
Replete electrolytes with K>4, Mg>2
Monitor chest tube output (mediastinal chest tubes x2; left pleural chest tube now removed)
Pain control
Monitor hemoglobin
Monitor platelet count and coags
Transfuse blood products as needed to maintain Hb>7g/dL, plt>50k (given post-operative status)
CT surgery managing chest tubes
Monitor blood sugar to maintain euglycemia with goal BG 110-140
Insulin drip now stopped to continue with insulin ISS to maintain BG goal as above
Aspiration precautions
DVT prophylaxis
Early nutrition
Early mobilization
Outpatient LDCT chest for lung cancer screening as well as RUL lung nodule surveillance as he is high risk given he is an active smoker - next CT chest due in 03/2025
Patient now being downgraded to CVICU�telemetry status. No additional recommendations at this time. Machine I Coremaker/Pulmonary service will now sign off. Thank you for allowing us to be involved in the care of this patient. Please reconsult if there
are any additional questions/concerns, or if patient's respiratory status deteriorates.
Total time spent today was 58 minutes for this encounter. Time includes reviewing laboratory test/imaging results, reviewing pertinent medical records, obtaining and reviewing medical history, performing an appropriate exam, ordering medications,
tests and procedures. Time also includes documentation of this encounter, coordinating patient care and communicating with other healthcare professionals. Total time does not include separately billed tests performed on this date of service.
Subjective Dataa
Subjective Data
Date of Service:
Date of Service: July 03, 2024
Chief Complaint: Machine I Coremaker Follow Up
Subjective:
Patient was seen and evaluated this morning. He is in good spirits. Mediastinal chest tubes x [address] Currently on 4 L/min nasal cannula, saturating 92% with heart rate 80, BP 112/66. Patient denies WALKER, nausea, fevers or chills. Has some
chest discomfort at the operative site.
Review of Systems
General: Other (Negative unless mentioned above)
Objective Data
Data Reviewed
Vital Signs / I&O / Oxygen:
Vital Signs
Temp Pulse Resp BP Pulse Ox
99.2 F 94 20 120/66 91
07/03/24 15:43 07/03/24 15:34 07/03/24 15:43 07/03/24 15:34 07/03/24 15:43
Intake and Output
07/02/24 07/03/24 07/04/24
06:59 06:59 06:59
Intake Total 552.3 / 563.6 108.4 / 108.4
Output Total 1290 / 1315 1015 / 1015
Balance -737.7 / -751.4 -906.6 / -906.6
SaO2 [CPAP] 96
SaO2 [SIMV] 95
SaO2 91
Nasal Cannula flow liters per 3
minute
Physical Exam
General: Respiratory Distress (negative), Comfortable, Pain (Post-operative site chest discomfort), Chills (negative) and Sweats (negative)
HEENT: Normocephalic and Anicteric
Cardiovascular: S1-S2 and Peripheral Edema (negative)
Respiratory: Clear, Wheeze (negative), Crackles (negative), Rhonchi (negative), Non-Labored Respirations and Chest Tube (mediastinal chest tubes x2)
GI: Soft, Distended (Abdominal obesity), Non Tender and Normal Bowel Sounds
Neurology: Awake, Alert and Tremors (negative)
Skin: Warm, Dry, Cyanosis (negative) and Jaundice (negative)
Labs/Micro/Reports
Lab Data
07/03/24 02:40
07/03/24 02:40
Laboratory Results
07/02/24
15:20
pH Cancelled
pCO2 Cancelled
pO2 Cancelled
HCO3 Cancelled
O2 Delivery Level Cancelled
Microbiology
07/02/24 07:15 Urine Urine Culture - Final
Streptococcus species
[2024-07-03] MEDS: LASIX 40 MG IV (08:52)
[2024-07-03] MEDS: DILAUDID 0.5 MG IV ×2 (09:51→14:09)
[2024-07-03 09:56] LABS: Glucose - Point of Care 115 mg/dl (70-99)
[2024-07-03] MEDS: ROXICODONE 7.5 MG PO ×2 (11:28→17:18)
[2024-07-03] MEDS: NSS IV (11:43)
[2024-07-03] MEDS: NOVOLOG FLEXPEN 4 UNITS SC (11:57)
--- NOTE | 2024-07-03 12:00 | PTCARENOTE ---
pt VSS, OOB in chair for lunch. ambulated w/ CR in hallway. IS encouraged. pain meds given as ordered.
[2024-07-03 12:26] LABS: Glucose - Point of Care 139 mg/dl (70-99)
--- NOTE | 2024-07-03 13:31 | PTCARENOTE ---
pt placed back to bed. L pleural CT dc'd as ordered, chest tube dressing changed. resting between care.
--- NOTE | 2024-07-03 13:49 | W.PN.CARDCBS ---
Addendum entered and electronically signed by Román Almanza DO 07/03/24 20:51:
I saw and examined the patient.
The Purchasing And Fiscal Clerk's note was reviewed and I agree with the note.
Comment:
Plan:
s/p aortic valve replacement #25 Inspiris Resilia and CABG x 1 FRIEND-LAD 07/02/2024
Cont post op care
Remains sinus
BP stable off pressors
Cont DAPT
CT care per CT surgery
Discussed with family at bedside.
Original Note:
Today's Communication / Plan
-
continue post op care
Impression / Plan
-
PCP: Jace Anne
Import Customer Service Manager: Woody Vora
Impression:
Elective admission 07/02/2024 for severe symptomatic aortic stenosis, coronary artery disease
s/p aortic valve replacement #25 Inspiris Resilia (07/02/2024)
s/p CABG x 1 FRIEND-LAD (07/02/2024)
Rheumatic fever at age 15
Hypertrophic cardiomyopathy
Hyperlipidemia
Tobacco abuse
Type 2 diabetes
Hiatal hernia
Sleep apnea with CPAP
Obesity
Depression
Cervical spine fusion
Bilateral knee replacements
Cardiac catheterization 05/15/2024: LM: LI. LAD: Proximal to mid 60% stenosis new origin of first septal access service representative. Left circumflex: LI. RCA: Significant ectasia over its course. AORTIC VALVE:Mean Gradient: 40 mmHg; Aortic Valve Area: 0.96 cm�.
Estimated Radha Cardiac Output: 4.9 L / min and Cardiac Index: 2.0 L/ min / m-2. Pulmonary vascular resistance: 2.24 Wood units or 179.6 kywab-[id number]-rt(-5). Systemic vascular resistance: 14.5 Wood units or 1159 mjcus-lgy-cf(-5)
Postop ADAM: LVEF 55 to 60%. S/P AVR #25 bioprosthetic. The aortic valve is well-seated with no paravalvular leak. The mean gradient is 13 mmHg with a cardiac index of 2 L/min/sq. meters. Upon chest closure the
gradient is 7 mmHg with stable hemodynamics. Otherwise unchanged exam.
Echo 03/02/2024: EF 55 to 60%. Mild concentric LVH. Moderate to severe aortic stenosis with peak/mean gradient 71/40 mmHg. The aortic valve peak velocity measures 4.22 m/sec and the dimensionless index is
0.32. There is mild to moderate aortic insufficiency
Plan:
-s/p aortic valve replacement #25 Inspiris Resilia and CABG x 1 FRIEND-LAD 07/02/2024
-reports some post op pain overnight, now improved
-off pressors
-EKG SR with evidence of possible pericarditis. follow. with rub on exam.
-in SR on review of tele
-hgb 11. continue asa, plavix
-continue post op care
-was on regimen of lisinopril 5mg daily and diltiazem 180mg BID prior to admission. will finalize regimen prior to DC
-OOB/IS as able
-d/w nursing
Progress Note - Import Customer Service Manager
Subjective
Date of Service: July 03, 2024
reports pain adequately controlled at present
Objective
Labs:
07/03/24 02:40
07/03/24 02:40
Labs
Hgb 11.0 g/dL (13.0-18.0) L 07/03/24 02:40
Hct 32.4 % (39.0-52.0) L 07/03/24 02:40
Plt Count 231 10^3/uL (130-400) 07/03/24 02:40
PT 16.1 Sec (11.4-14.6) H 07/02/24 14:11
INR 1.26 07/02/24 14:11
APTT 26.6 Sec (23.4-35.0) 07/02/24 14:11
Sodium 138 mmol/L (135-145) 07/03/24 02:40
Potassium 4.5 mmol/L (3.5-5.1) 07/03/24 02:40
BUN 20 mg/dl (9-20) 07/03/24 02:40
Creatinine 0.9 mg/dL (0.7-1.3) 07/03/24 02:40
Glucose 108 mg/dl (70-99) H 07/03/24 02:40
Vital Signs and I&O:
Vital Signs
Temp Pulse Resp BP Pulse Ox
98.2 F 83 18 109/66 93
07/03/24 11:00 07/03/24 13:00 07/03/24 12:00 07/03/24 13:00 07/03/24 13:00
Vital Signs
Temp Pulse Resp BP Pulse Ox
98.2 F 83 18 109/66 93
07/03/24 11:00 07/03/24 13:00 07/03/24 12:00 07/03/24 13:00 07/03/24 13:00
Intake & Output
07/01/24 07/02/24 07/03/24 07/04/24
07:59 07:59 07:59 07:59
Intake Total 563.6 / 574.9 74.1 / 74.1
Output Total 1315 / 1315 480 / 480
Balance -751.4 / -740.1 -405.9 / -405.9
Physical Exam
Physical Exam
GEN: No distress, awake, alert, oriented x3. obese. on supp O2
HEENT: supple, anicteric, mmm, eomi
LUNGS: Diminished BS B/L, no wheezes
CV: Reg, S1/S2, no murmur, + rub
ABD: soft, BS+, NT/ND
EXT: No cyanosis, clubbing. trace edema of B/L LE
NEURO: Gross non-focal
SKIN: Warm, pink, dry. No rash. Sternotomy dressing c/d/i. CT in place
[2024-07-03 14:14] LABS: Glucose - Point of Care 103 mg/dl (70-99)
--- NOTE | 2024-07-03 15:50 | PTCARENOTE ---
pt VSS, no changes in assessment. pain meds given as ordered. IS encouraged, occasional productive cough. at bedside. V wire insulated.
[2024-07-03] MEDS: LIPITOR 80 MG PO (17:18)
--- NOTE | 2024-07-03 19:00 | PTCARENOTE ---
assumed care of patient @ 1900. received pt sitting in chair, Aox3. SR on tele HR 80s. +pulses, trace edema. Rub ausculated. Heart tones distant. Lungs clear, diminished satting mid 90s on 4L. HOOD. taking shallow breaths. 2 mediastinal chest tubes
to wall suction, + tidaling, no air leak or crepitus. Tolerating diet. voiding clear yellow urine in urinal. MSI CDI. PIV x2 patent, R IJ cordis patent. pt resting in chair with family at bedside, call vigil within reach .
[2024-07-03] MEDS: DILAUDID 0.25 MG IV (19:42)
[2024-07-04] VITALS (16 sets, daily range): BP systolic 96–128; BP diastolic 56–74; PULSE 80; O2SAT 88–90; BMI 41.4
--- NOTE | 2024-07-04 00:40 | PTCARENOTE ---
flexeril and tonny given for pain. pt resting with call vigil within reach , no other change in assessment .
[2024-07-04] MEDS: FLEXERIL 5 MG PO ×2 (00:46→13:16)
[2024-07-04] MEDS: ROXICODONE 7.5 MG PO ×5 (00:48→20:37)
[2024-07-04] MEDS: TORADOL 15 MG IV ×2 (03:24→13:16)
--- NOTE | 2024-07-04 04:00 | PTCARENOTE ---
labs drawn and sent , toradol given for pain . no change in assessment .
[2024-07-04 04:37] LABS: Blood Urea Nitrogen 18 mg/dl (9-20); Calcium 7.9 mg/dl (8.4-10.2); Carbon Dioxide 28 mmol/L (22-30); Chloride 104 mmol/L (98-107); Estimated Creatinine Clearance 120 ml/min; Glucose 102 mg/dl (70-99); Magnesium 2.2 mg/dl (1.6-2.3); Potassium 4.8 mmol/L (3.5-5.1); Sodium 136 mmol/L (135-145); eGFR > 60.00
[2024-07-04 04:47] LABS: Hematocrit 28.5 % (39.0-52.0); Hemoglobin 9.8 g/dL (13.0-18.0); Mean Corp Hgb Conc. 34.4 g/dL (33.0-37.0); Mean Corpuscular Hgb 29.4 pg (27.0-31.0); Mean Corpuscular Volume 85.6 fL (80.0-94.0); Mean Platelet Volume 10.7 fL (7.4-10.4); Platelet Count 183 10^3/uL (130-400); Red Blood Cell Count 3.33 10^6/uL (4.70-6.10); White Blood Cell Count 16.4 10^3/uL (4.8-10.8)
--- NOTE | 2024-07-04 05:47 | W.PN.CT ---
Today's Communication / Plan
-
- Doing well. No major events overnight
- Successfully extubated to LFNC @ 15:30 on 07/02
- CTs 2med 45/195, L pleural 0/0 in 12/24 hrs
- UOP 600/1450 in 12/24 hrs - received 40 iv lasix 07/03
- 4L NC - wean down/off O2, IS use reinforced
- Continue current meds: amio, asa, atorvastatin, metoprolol 12.5 mg, mag ox, PPI, Plavix
- continue outpatient meds: bupropion, escitalopram
- Multimodal pain management (APAP, gabapentin, Roxicodone)
- Bowel regimen
- OOB, ambulate as tolerated
- dispo planning
Assessment / Plan
-
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 De La Paz POD #2
post op ADAM: LVEF 60-65%, no RWMA, trace to mild MR, well-seated AVR w/ no PVL/AI, mean gradient 7mmHg
Hypertrophic cardiomyopathy
Hyperlipidemia
Tobacco abuse
Type 2 diabetes
Hiatal hernia
Sleep apnea with CPAP
Obesity
Depression
Cervical spine fusion
Bilateral knee replacements
Acute hypoxic respiratory failure
Acute post operative pain
Acute post op hypotension
Discussed patient care with: Care Team
Subjective
Procedure
s/p CABG x1 (ERIK to LAD), AVR (#25 Inspiris Resilia) with Dr. De La Paz 07/02/24
-
Date of Service: July 04, 2024
Objective Data
-
Lab Results
07/03/24 02:40
07/03/24 02:40
PT 16.1 Sec (11.4-14.6) H 07/02/24 14:11
INR 1.26 07/02/24 14:11
APTT 26.6 Sec (23.4-35.0) 07/02/24 14:11
Vital Signs
Vital Signs
Temp Pulse Resp BP Pulse Ox
99.3 F 80 22 120/66 92
07/03/24 20:00 07/03/24 18:30 07/03/24 20:00 07/03/24 15:34 07/03/24 20:00
CT Intake/Output/Weight
07/03/24 07/03/24 07/04/24
06:59 18:59 06:59
Intake Total 279.2 / 563.6 108.4 / 128.4 20 / 128.4
Output Total 775 / 1315 1015 / 1035 20 / 1035
Balance -495.8 / -751.4 -906.6 / -906.6 0 / -906.6
SaO2: 92
Physical Exam
-
General: Awake, Oriented and AOx3
Cardiovascular: Regular rate & rhythm
Respiratory: Clear and Equal
Sternum: Stable
Incision: Clean, Dry and Intact
Extremities: Edema +1
Data Reviewed
-
Lab Results: Results Reviewed
Medications: Active Meds Reviewed
Chest X-Ray: Image Reviewed
Vital Signs / Labs
-
Vital Signs and Labs:
Temp Pulse Resp BP Pulse Ox
99.1 F 71 22 111/64 95
07/04/24 04:00 07/04/24 04:00 07/04/24 04:00 07/04/24 03:35 07/04/24 04:00
07/04/24 03:32
07/04/24 03:32
07/01/24 07/03/24 07/03/24
17:30 06:04 08:25
WBC
RBC
Hgb
Hct
RDW
MPV
Glucose
Calcium
POC Glucose 103 H 130 H
Crossmatch IS Only See Detail
07/03/24 07/03/24 07/03/24
09:54 12:25 14:12
WBC
RBC
Hgb
Hct
RDW
MPV
Glucose
Calcium
POC Glucose 115 H 139 H 103 H
Crossmatch IS Only
07/04/24
03:32
WBC 16.4 H
RBC 3.33 L
Hgb 9.8 L
Hct 28.5 L
RDW 15.0 H
MPV 10.7 H
Glucose 102 H
Calcium 7.9 L
POC Glucose
Crossmatch IS Only
[2024-07-04] MEDS: PACERONE 200 MG PO ×3 (07:29→20:21)
[2024-07-04] MEDS: PROTONIX 40 MG PO (07:29)
[2024-07-04] MEDS: SENOKOT-S 1 TABLET PO ×2 (07:29→20:23)
[2024-07-04] MEDS: GLUCOPHAGE 500 MG PO (07:29)
[2024-07-04] MEDS: LEXAPRO 20 MG PO (07:29)
[2024-07-04] MEDS: WELLBUTRIN XL (24 hour extended release) 150 MG PO ×2 (07:29→20:21)
[2024-07-04] MEDS: PLAVIX 75 MG PO (07:30)
[2024-07-04] MEDS: LOW STRENGTH ASPIRIN 81 MG PO (07:30)
[2024-07-04] MEDS: TYLENOL 1000 MG PO ×3 (07:30→20:21)
[2024-07-04] MEDS: MAGNESIUM OXIDE 500 MG PO ×2 (07:30→20:21)
[2024-07-04] MEDS: LASIX 40 MG IV (07:30)
[2024-07-04] MEDS: NEURONTIN 100 MG PO ×3 (07:30→20:22)
[2024-07-04] MEDS: BACTROBAN 2% OINTMENT 1 APPLIC NASAL ×2 (07:35→20:23)
[2024-07-04] MEDS: NOVOLOG FLEXPEN-MODERATE RESISTANCE SC ×2 (07:43→16:44)
[2024-07-04 07:44] LABS: Glucose - Point of Care 100 mg/dl (70-99)
[2024-07-04] MEDS: VENTOLIN NEBULES 2.5 MG INH (07:45)
--- NOTE | 2024-07-04 08:00 | PTCARENOTE ---
pt received from previous RN, oriented, OOB in chair. SR on the monitor, HR 70-80s. distant heart tones. V wires insulated. SBP 90s. palpable pulses. trace LE edema. pt on 4LNC, 92-95% POX. +expiratory wheeze. RT called for breathing tx. IS
encouraged. CTx2, no air leak or crepitus. productive cough. pt abdomen round, s/n, denies n/v. +flatus. voids. sternal dressing intact, old drainage. chest tube dressing c/d/i. RIJ Cordis maintained. PIV x2. see worklist for VS, I&O, and
assessment.
[2024-07-04] MEDS: LOPRESSOR PO (08:10)
--- NOTE | 2024-07-04 08:21 | W.PN.CARDCBS ---
Addendum entered and electronically signed by Woody Vora MD 07/04/24 09:18:
I saw and examined the patient.
The Costume Technician's note was reviewed and I agree with the note.
Comment: Briefly, 59-year-old man past medical history of aortic stenosis and CAD who underwent AVR/CABG x 1 earlier this week 07/02/2024.
He is resting comfortably out of bed to chair this morning in the CVICU
No cardiac complaints and tells me that his breathing is more comfortable after having chest tubes removed earlier today
O2 sats are borderline on room air, encouraged incentive spirometer
Volume status is reasonable on exam
Agree with IV Lasix as ordered
Maintaining sinus rhythm on telemetry
Would continue current cardiac meds�aspirin/Plavix/high intensity statin/beta-walker
Eventual cardiac rehab
Discussed with patient and at bedside
Original Note:
Today's Communication / Plan
-
continue post op care
Impression / Plan
-
PCP: Jace Anne
Block Chopper Hand: Woody Vora
Impression:
Elective admission 07/02/2024 for severe symptomatic aortic stenosis, coronary artery disease
s/p aortic valve replacement #25 Inspiris Resilia (07/02/2024)
s/p CABG x 1 FRIEND-LAD (07/02/2024)
Rheumatic fever at age 15
Hypertrophic cardiomyopathy
Hyperlipidemia
Tobacco abuse
Type 2 diabetes
Hiatal hernia
Sleep apnea with CPAP
Obesity
Depression
Cervical spine fusion
Bilateral knee replacements
Cardiac catheterization 05/15/2024: LM: LI. LAD: Proximal to mid 60% stenosis new origin of first septal braille coder. Left circumflex: LI. RCA: Significant ectasia over its course. AORTIC VALVE:Mean Gradient: 40 mmHg; Aortic Valve Area: 0.96 cm�.
Estimated Radha Cardiac Output: 4.9 L / min and Cardiac Index: 2.0 L/ min / m-2. Pulmonary vascular resistance: 2.24 Wood units or 179.6 [id number](-5). Systemic vascular resistance: 14.5 Wood units or 1159 vzcwm-[id number]-tp(-5)
Postop ADAM: LVEF 55 to 60%. S/P AVR #25 bioprosthetic. The aortic valve is well-seated with no paravalvular leak. The mean gradient is 13 mmHg with a cardiac index of 2 L/min/sq. meters. Upon chest closure the
gradient is 7 mmHg with stable hemodynamics. Otherwise unchanged exam.
Echo 03/02/2024: EF 55 to 60%. Mild concentric LVH. Moderate to severe aortic stenosis with peak/mean gradient 71/40 mmHg. The aortic valve peak velocity measures 4.22 m/sec and the dimensionless index is
0.32. There is mild to moderate aortic insufficiency
Plan:
-s/p aortic valve replacement #25 Inspiris Resilia and CABG x 1 FRIEND-LAD 07/02/2024
-doing well
-chest tubes out
-wean supp O2 as able
-encouraged IS
-hgb 9.8 continue asa, plavix.
-in SR on review of tele.
-was on regimen of lisinopril 5mg daily and diltiazem 180mg BID prior to admission. will finalize regimen prior to DC
-continue post op care
-it [birth year] today!
-d/w nursing
Progress Note - Block Chopper Hand
Subjective
Date of Service: July 04, 2024
doing well. reports pain controlled
Objective
Labs:
07/04/24 03:32
07/04/24 03:32
Labs
Hgb 9.8 g/dL (13.0-18.0) L 07/04/24 03:32
Hct 28.5 % (39.0-52.0) L 07/04/24 03:32
Plt Count 183 10^3/uL (130-400) D 07/04/24 03:32
PT 16.1 Sec (11.4-14.6) H 07/02/24 14:11
INR 1.26 07/02/24 14:11
APTT 26.6 Sec (23.4-35.0) 07/02/24 14:11
Sodium 136 mmol/L (135-145) 07/04/24 03:32
Potassium 4.8 mmol/L (3.5-5.1) 07/04/24 03:32
BUN 18 mg/dl (9-20) 07/04/24 03:32
Creatinine 0.9 mg/dL (0.7-1.3) 07/04/24 03:32
Glucose 102 mg/dl (70-99) H 07/04/24 03:32
Vital Signs and I&O:
Vital Signs
Temp Pulse Resp BP Pulse Ox
98.5 F 78 18 105/63 95
07/04/24 07:54 07/04/24 08:12 07/04/24 07:54 07/04/24 08:12 07/04/24 07:54
Vital Signs
Temp Pulse Resp BP Pulse Ox
98.5 F 78 18 105/63 95
07/04/24 07:54 07/04/24 08:12 07/04/24 07:54 07/04/24 08:12 07/04/24 07:54
Intake & Output
07/02/24 07/03/24 07/04/24 07/05/24
07:59 07:59 07:59 07:59
Intake Total 563.6 / 574.9 207.1 / 207.1
Output Total 1315 / 1315 2445 / 2445
Balance -751.4 / -740.1 -2237.9 / -2237.9
Physical Exam
Physical Exam
GEN: No distress, awake, alert, oriented x3. obese. on supp O2
HEENT: supple, anicteric, mmm, eomi
LUNGS: Diminished BS B/L, no wheezes
CV: Reg, S1/S2, no murmur, + rub
ABD: soft, BS+, NT/ND
EXT: No cyanosis, clubbing. trace edema of B/L LE
NEURO: Gross non-focal
SKIN: Warm, pink, dry. No rash. Sternotomy dressing c/d/i.
--- NOTE | 2024-07-04 08:30 | PTCARENOTE ---
pt c/o pain, received PRN Roxicodone 7.5mg PO. pt placed back to bed, Mediastinal CTs dc'd as ordered. pt OOB to chair for breakfast.
[2024-07-04] MEDS: NOVOLOG FLEXPEN-MODERATE RESISTANCE 1 UNITS SC (11:35)
[2024-07-04 11:36] LABS: Glucose - Point of Care 150 mg/dl (70-99)
--- NOTE | 2024-07-04 12:00 | PTCARENOTE ---
pt VSS, no changes in assessment. OOB in chair for lunch, 93-95% POX on RA in chair. at bedside. pt aware to bring own CPAP in.
[2024-07-04] MEDS: NSS 500 IV (12:18)
--- NOTE | 2024-07-04 12:43 | PN.CDI ---
CDI
- -
CDI:
Physician Documentation Request
Admit Date: 07/02/24 04:44
Dear Doctor Brain,
07/02 Patient underwent CABG and AVR.
Progress notes 07/04 include a diagnosis of acute hypoxic respiratory failure
Recognized standard criteria for respiratory failure includes:
(Source: [facility] Feb 2013)
ABGs (1 or more)
�PO2 <60 or RA SpO2 <91%
�PcO2 >50 and pH <7.35
�pO2 decrease or pcO2 increase by 10 mmHg from baseline if known Symptoms:
�Tachypnea, SOB, dyspnea
�Pallor or cyanosis
�Anxiety or restlessness
�Use of accessory muscles
�Retractions (grunting in newborns)
�Unable to speak in complete sentences
Supplemental O2 requirement of 40% (5LPM) or more Intubation is not required
Based on the above information and the recognized standard for respiratory failure could you please verify this diagnoses is still accurate and reflective of the patient�s condition to ensure quality of the medical record.
Please clarify in the Progress Notes:
�Respiratory failure is/was present and is a clinical diagnosis based on (please include this additional support in the medical record)
�After study respiratory failure has been ruled out
�Other
Use of terms such as suspected, likely, concern for, or probable (associated with a specific diagnosis that is being evaluated, monitored, or treated as if it exists) are acceptable and can be coded in the inpatient setting, when documented at the
time of discharge.
Thank you,
Carie Knowles RN, BSN
CDI Specialist
tiger text
Please use your independent medical judgment in providing your response.
--- NOTE | 2024-07-04 12:45 | PN.CDI ---
CDI
- -
CDI:
Physician Documentation Request
Admit Date: 07/02/24 04:44
Dear Doctor Brain,
07/02 Patient underwent CABG and AVR.
H/H results:
Laboratory Tests
06/14/24 07/02/24 07/03/24
12:21 14:11 02:40
Hgb 13.9 11.7 L 11.0 L
Hct 40.9 34.3 L 32.4 L
07/04/24
03:32
Hgb 9.8 L
Hct 28.5 L
Could you please provide a diagnosis that supports the above lab abnormalities and additional evaluation/ monitoring:
Acute blood loss anemia
Anemia - other- please specify
Abnormal lab value clinically insignificant
Other
Use of terms such as suspected, likely, concern for, or probable (associated with a specific diagnosis that is being evaluated, monitored, or treated as if it exists) are acceptable and can be coded in the inpatient setting, when documented at the
time of discharge.
Thank you,
Carie Knowles RN BSN
CDI Specialist
tiger text
Please use your independent medical judgment in providing your response.
--- NOTE | 2024-07-04 14:00 | PTCARENOTE ---
pt c/o sternal pain, received PRN Toradol and PRN Flexeril. IS encouraged, chest PT performed. pt ambulated in hallway w/ stand by assist. placed back to bed to rest.
--- NOTE | 2024-07-04 15:18 | CM ---
CM following for DC planning needs.
Patient POD#2. Reviewed initial assessment. Pt. resides w/ spouse in a private, 2 PABLO. Pt. is functionally indep. at baseline w/ ADLs, mobility without the use of any assisted device.
Antic. DC plan is for home w/ CT Transitional Care RN.
Will follow.
[2024-07-04 16:44] LABS: Glucose - Point of Care 104 mg/dl (70-99)
--- NOTE | 2024-07-04 16:47 | PTCARENOTE ---
pt VSS. no changes in assessment. OOB to chair for dinner. pt c/o pain, received PRN Roxicodone 7.5mg PO. family at bedside. IS encouraged. chest PT performed.
[2024-07-04] MEDS: LIPITOR 80 MG PO (17:13)
--- NOTE | 2024-07-04 19:00 | PTCARENOTE ---
assumed care of patient @ 1900. received pt sitting in chair, Aox3. SR on tele HR 80s. +pulses, trace edema. Heart tones distant. Lungs clear, diminished satting mid 90s on ra. HOOD. taking shallow breaths. Tolerating diet. voiding clear yellow urine
in urinal. MSI CDI. PIV x2 patent, R IJ cordis patent. pt assisted to walk to IVU waiting room and back with steady gait. now resting comfortably in bed with call vigil within reach .
[2024-07-04] MEDS: TOPROL XL 12.5 MG PO (20:21)
[2024-07-04 20:37] LABS: Glucose - Point of Care 123 mg/dl (70-99)
[2024-07-05] VITALS (11 sets, daily range): BP systolic 100–158; BP diastolic 61–140; PULSE 67; O2SAT 98; BMI 41.1
--- NOTE | 2024-07-05 | PTCARENOTE ---
pt on home CPAP 02 low 90s. resting comfortably in bed, no change in assessment.
[2024-07-05] MEDS: TORADOL 15 MG IV (02:24)
[2024-07-05 02:27] LABS: Hematocrit 26.6 % (39.0-52.0); Hemoglobin 9.1 g/dL (13.0-18.0); Mean Corp Hgb Conc. 34.2 g/dL (33.0-37.0); Mean Corpuscular Hgb 29.3 pg (27.0-31.0); Mean Corpuscular Volume 85.5 fL (80.0-94.0); Mean Platelet Volume 10.2 fL (7.4-10.4); Platelet Count 183 10^3/uL (130-400); Red Blood Cell Count 3.11 10^6/uL (4.70-6.10); Red Cell Dist. Width 14.8 % (11.5-14.5); White Blood Cell Count 15.8 10^3/uL (4.8-10.8)
[2024-07-05 02:51] LABS: Blood Urea Nitrogen 15 mg/dl (9-20); Carbon Dioxide 29 mmol/L (22-30); Chloride 102 mmol/L (98-107); Estimated Creatinine Clearance > 125 ml/min; Glucose 105 mg/dl (70-99); Magnesium 2.2 mg/dl (1.6-2.3); Potassium 4.1 mmol/L (3.5-5.1); Sodium 137 mmol/L (135-145); eGFR > 60.00
--- NOTE | 2024-07-05 03:00 | PTCARENOTE ---
Received hand off on pt from plant operator/shift supervisor RN at 0230. pt resting comfortably in bed. plan is for D/C later in day. NSR on monitor. VSS. will continue to monitor.
[2024-07-05 03:05] LABS: Calcium 8.1 mg/dl (8.4-10.2)
[2024-07-05] MEDS: TYLENOL 1000 MG PO ×3 (06:21→21:48)
--- NOTE | 2024-07-05 07:31 | W.PN.CT ---
Today's Communication / Plan
-
-pod #3
-no issues overnight
-feels much better after CTs came out
-diuresed well with 40 iv Lasix on 07/04 (UO 1400/2500 in 12/24 hrs)
-low BP - improved, switched to Toprol XL 12.5 bid
-continue diuresis
-current meds (ASA, Plavix, Amio, Lopressor, Toprol, Lipitor, Lasix, Metformin, Lexapro)
-encourage IS, OOB
Assessment / Plan
-
Severe (P/M: 71/40, Recreation Programmer 4.22, MIKE 0.96) 60% LAD stenosis s/p CABG x1 (ERIK to LAD), AVR (#25 Inspiris Resilia) on 07/02/[address] De La Paz, POD #3
post op ADAM: LVEF 60-65%, no RWMA, trace to mild MR, well-seated AVR w/ no PVL/AI, mean gradient 7mmHg
Hypertrophic cardiomyopathy
Hyperlipidemia
Tobacco abuse
Type 2 diabetes
Hiatal hernia
Sleep apnea with CPAP
Obesity
Depression
Cervical spine fusion
Bilateral knee replacements
Acute hypoxic respiratory failure
Acute post operative pain
Acute post op hypotension
Discussed patient care with: Nursing and Care Team
Subjective
Procedure
s/p CABG x1 (ERIK to LAD), AVR (#25 Inspiris Resilia) with Dr. De La Paz 07/02/24
-
Date of Service: July 05, 2024
Objective Data
-
Lab Results
07/05/24 02:14
07/05/24 02:14
PT 16.1 Sec (11.4-14.6) H 07/02/24 14:11
INR 1.26 07/02/24 14:11
APTT 26.6 Sec (23.4-35.0) 07/02/24 14:11
Vital Signs
Vital Signs
Temp Pulse Resp BP Pulse Ox
98.1 F 71 20 121/73 92
07/05/24 03:00 07/05/24 02:30 07/05/24 03:00 07/05/24 02:27 07/05/24 03:00
CT Intake/Output/Weight
07/04/24 07/05/24 07/05/24
18:59 06:59 18:59
Intake Total 1060 / 1080 20 / 1080
Output Total 1110 / 2510 1400 / 2510
Balance -50 / -1430 -1380 / -1430
SaO2: 92
Physical Exam
-
General: Awake and AOx3
Cardiovascular: Regular rate & rhythm, Murmur (1/6 systolic @ Lsb) and No Rub
Respiratory: Decreased Breath Sounds
Sternum: Stable
Incision: Clean, Dry and Intact
Extremities: Other (trace edema b/l, 2+ DPs b/l)
Abdomen: soft, nontender, nondistended, + bowel sounds
Data Reviewed
-
Lab Results: Results Reviewed
Medications: Active Meds Reviewed
Chest X-Ray: Report Reviewed and Image Reviewed
ECG: Report Reviewed and Image Reviewed
[2024-07-05] MEDS: NOVOLOG FLEXPEN-MODERATE RESISTANCE SC ×3 (07:43→17:33)
[2024-07-05] MEDS: MAGNESIUM OXIDE 500 MG PO ×2 (07:44→20:12)
[2024-07-05] MEDS: GLUCOPHAGE 500 MG PO (07:44)
[2024-07-05] MEDS: PLAVIX 75 MG PO (07:44)
[2024-07-05] MEDS: PROTONIX 40 MG PO (07:44)
[2024-07-05] MEDS: NEURONTIN 100 MG PO ×3 (07:44→21:48)
[2024-07-05] MEDS: PACERONE 200 MG PO ×3 (07:44→21:48)
[2024-07-05] MEDS: LOW STRENGTH ASPIRIN 81 MG PO (07:45)
[2024-07-05] MEDS: SENOKOT-S 1 TABLET PO ×2 (07:45→20:12)
[2024-07-05] MEDS: BACTROBAN 2% OINTMENT 1 APPLIC NASAL ×2 (07:45→20:13)
[2024-07-05] MEDS: LEXAPRO 20 MG PO (07:45)
[2024-07-05] MEDS: LASIX 40 MG IV (07:45)
[2024-07-05] MEDS: WELLBUTRIN XL (24 hour extended release) 150 MG PO ×2 (07:45→20:13)
[2024-07-05 07:50] LABS: Glucose - Point of Care 104 mg/dl (70-99)
--- NOTE | 2024-07-05 08:11 | PTCARENOTE ---
Received pt from night coordinator RN; pt AAOx3 and resting comfortable in chair; NSR on monitor and VSS; Epicardial V wire insulated; RIJ Cordis and PIV x2 patent; Lungs diminished; Hypoactive bowel sounds; pt voiding yellow urine; palpable pulses
throughout; trace lower extremity edema noted; all surgical sites C/D/I; see nursing documentation for further details.
[2024-07-05] MEDS: TOPROL XL 12.5 MG PO ×2 (09:41→20:12)
[2024-07-05] MEDS: ROXICODONE 5 MG PO ×2 (11:38→20:13)
[2024-07-05] MEDS: NSS IV (11:38)
--- NOTE | 2024-07-05 12:12 | PTCARENOTE ---
Assessment unchanged; NSR on monitor and VSS; pt ambulating hallways with RN and family.
--- NOTE | 2024-07-05 12:25 | W.PN.CARDCBS ---
Addendum entered and electronically signed by Román Almanza DO 07/05/24 18:17:
I saw and examined the patient.
The Merchandise Planning Manager's note was reviewed and I agree with the note.
Comment:
Plan:
Continue postop care.
Remains sinus rhythm.
Continue dual antiplatelet therapy
Blood pressure remains stable on Toprol.
Given CAD continue Toprol and consider resuming OSWALD inhibitor.
Discussed with family at bedside.
Original Note:
Today's Communication / Plan
-
continue post op care
Impression / Plan
-
PCP: Jace Anne
Mixing Tumbler Operator: Woody Vora
Impression:
Elective admission 07/02/2024 for severe symptomatic aortic stenosis, coronary artery disease
s/p aortic valve replacement #25 Inspiris Resilia (07/02/2024)
s/p CABG x 1 FRIEND-LAD (07/02/2024)
Rheumatic fever at age 15
Hypertrophic cardiomyopathy
Hyperlipidemia
Tobacco abuse
Type 2 diabetes
Hiatal hernia
Sleep apnea with CPAP
Obesity
Depression
Cervical spine fusion
Bilateral knee replacements
Cardiac catheterization 05/15/2024: LM: LI. LAD: Proximal to mid 60% stenosis new origin of first septal poultry scalder. Left circumflex: LI. RCA: Significant ectasia over its course. AORTIC VALVE:Mean Gradient: 40 mmHg; Aortic Valve Area: 0.96 cm�.
Estimated Radha Cardiac Output: 4.9 L / min and Cardiac Index: 2.0 L/ min / m-2. Pulmonary vascular resistance: 2.24 Wood units or 179.6 [id number](-5). Systemic vascular resistance: 14.5 Wood units or 1159 [id number](-5)
Postop ADAM: LVEF 55 to 60%. S/P AVR #25 bioprosthetic. The aortic valve is well-seated with no paravalvular leak. The mean gradient is 13 mmHg with a cardiac index of 2 L/min/sq. meters. Upon chest closure the
gradient is 7 mmHg with stable hemodynamics. Otherwise unchanged exam.
Echo 03/02/2024: EF 55 to 60%. Mild concentric LVH. Moderate to severe aortic stenosis with peak/mean gradient 71/40 mmHg. The aortic valve peak velocity measures 4.22 m/sec and the dimensionless index is
0.32. There is mild to moderate aortic insufficiency
Plan:
-s/p aortic valve replacement #25 Inspiris Resilia and CABG x 1 FRIEND-LAD 07/02/2024
-looks great
-in SR on review of tele
-hgb 9.1 continue asa, plavix.
-BPs stable. transitioned to toprol 12.5mg BID. was on regimen of lisinopril 5mg daily and diltiazem 180mg BID prior to admission
-continue post op care
-OOB/IS as able
Progress Note - Mixing Tumbler Operator
Subjective
Date of Service: July 05, 2024
reports feeling well.
Objective
Labs:
07/05/24 02:14
07/05/24 02:14
Labs
Hgb 9.1 g/dL (13.0-18.0) L 07/05/24 02:14
Hct 26.6 % (39.0-52.0) L 07/05/24 02:14
Plt Count 183 10^3/uL (130-400) 07/05/24 02:14
PT 16.1 Sec (11.4-14.6) H 07/02/24 14:11
INR 1.26 07/02/24 14:11
APTT 26.6 Sec (23.4-35.0) 07/02/24 14:11
Sodium 137 mmol/L (135-145) 07/05/24 02:14
Potassium 4.1 mmol/L (3.5-5.1) 07/05/24 02:14
BUN 15 mg/dl (9-20) 07/05/24 02:14
Creatinine 0.8 mg/dL (0.7-1.3) 07/05/24 02:14
Glucose 105 mg/dl (70-99) H 07/05/24 02:14
Vital Signs and I&O:
Vital Signs
Temp Pulse Resp BP Pulse Ox
98.2 F 66 22 117/78 96
07/05/24 12:05 07/05/24 12:00 07/05/24 12:05 07/05/24 11:52 07/05/24 12:05
Vital Signs
Temp Pulse Resp BP Pulse Ox
98.2 F 66 22 117/78 96
07/05/24 12:05 07/05/24 12:00 07/05/24 12:05 07/05/24 11:52 07/05/24 12:05
Intake & Output
07/03/24 07/04/24 07/05/24 07/06/24
07:59 07:59 07:59 07:59
Intake Total 563.6 / 574.9 207.1 / 207.1 1070 / 1070
Output Total 1315 / 1315 2445 / 2445 2500 / 2500 750 / 750
Balance -751.4 / -740.1 -2237.9 / -2237.9 -1430 / -1430 -750 / -750
Physical Exam
Physical Exam
GEN: No distress, awake, alert, oriented x3. obese.
HEENT: supple, anicteric, mmm, eomi
LUNGS: CTA anterolaterally, no wheezes
CV: Reg, S1/S2, no murmur
ABD: soft, BS+, NT/ND
EXT: No cyanosis, clubbing. trace edema of B/L LE
NEURO: Gross non-focal
SKIN: Warm, pink, dry. No rash. Sternotomy dressing c/d/i.
--- NOTE | 2024-07-05 14:45 | CM ---
CM following for DC planning needs.
Patient POD#2.
Met w/ patient and spouse at bedside. Pt. pleasant, feels well.
Pt. anticipates DC tomorrow/Tuesday.
Pt. anticipates no needs at time of DC.
Plan is for home w/ CT Transitional Care RN.
CM to follow.
[2024-07-05] MEDS: LIPITOR 80 MG PO (16:52)
--- NOTE | 2024-07-05 17:13 | PTCARENOTE ---
NSR on monitor and VSS; assessment unchanged and pt waiting for dinner.
[2024-07-05 17:29] LABS: Glucose - Point of Care 106 mg/dl (70-99)
--- NOTE | 2024-07-05 20:45 | PTCARENOTE ---
Assumed care of pt from dayshift RN. Walking rounds completed. Pt AAOx3. Up w/ stand-by assist. SR on the tele monitor. HR 70s. Temporary epicardial v-wire insulated. BP stable. Palpable pulses throughout. Trace LE edema. Pt on RA. POX 92-94%. Lung
sounds diminished B/L. CPAP HS. Deep breathing and IS encouraged. Abdomen soft/nontender. +BS. Voiding w/o issue. All surgical sites stable. CT dressing intact. PIV x2 intact. See worklist for full nursing assessment and interventions. See MAR for
pain medication administration. Call vigil within reach.
[2024-07-05] MEDS: KLONOPIN 2 MG PO (23:36)
--- NOTE | 2024-07-05 23:49 | PTCARENOTE ---
No change in assessment. Pt SR on the tele monitor. HR 60s. BP stable. Pt is 91-95% on RA. All surgical sites stable. Call vigil within reach.
[2024-07-06 04:15] VITALS: BP 129/81
[2024-07-06 04:33] VITALS: BMI 40.8
--- NOTE | 2024-07-06 04:43 | PTCARENOTE ---
No change in assessment. Pt SR on the tele monitor. HR 60s. BP stable. Pt 95% on RA. All surgical sites stable. Labs drawn and sent. Pt OOB to void w/ minimal assist. Pt then positioned back into bed. No c/o pain at this time. Call vigil within
reach.
[2024-07-06 04:50] LABS: Hematocrit 26.2 % (39.0-52.0); Hemoglobin 8.9 g/dL (13.0-18.0); Mean Corpuscular Volume 85.3 fL (80.0-94.0); Mean Platelet Volume 10.4 fL (7.4-10.4); Platelet Count 229 10^3/uL (130-400); Red Blood Cell Count 3.07 10^6/uL (4.70-6.10); Red Cell Dist. Width 14.6 % (11.5-14.5); White Blood Cell Count 13.3 10^3/uL (4.8-10.8)
--- NOTE | 2024-07-06 05:01 | W.PN.CT ---
Today's Communication / Plan
-
-pod #1
-no complaints, ambulates without problems, wants to go home
-weaned off O2- POx 92-95% on RA
-follow 2v-CXR today
-follow Qt (on Amio and Lexapro)
-current meds (ASA, Plavix, Amio, Lopressor, Toprol, Lipitor, Lasix, Metformin, Lexapro)
-ambulate
-likely d/c home
Assessment / Plan
-
Severe (P/M: 71/40, Shake Out Worker 4.22, MIKE 0.96) 60% LAD stenosis s/p CABG x1 (ERIK to LAD), AVR (#25 Inspiris Resilia) on 07/02/[address] De La Paz, POD #4
post op ADAM: LVEF 60-65%, no RWMA, trace to mild MR, well-seated AVR w/ no PVL/AI, mean gradient 7mmHg
Hypertrophic cardiomyopathy
Hyperlipidemia
Tobacco abuse
Type 2 diabetes
Hiatal hernia
Sleep apnea with CPAP
Obesity
Depression
Cervical spine fusion
Bilateral knee replacements
Acute hypoxic respiratory failure
Acute post operative pain
Acute post op hypotension
Discussed patient care with: Nursing and Care Team
Subjective
Procedure
s/p CABG x1 (ERIK to LAD), AVR (#25 Inspiris Resilia) with Dr. De La Paz 07/02/24
-
Date of Service: July 06, 2024
Objective Data
-
Lab Results
07/06/24 04:24
PT 16.1 Sec (11.4-14.6) H 07/02/24 14:11
INR 1.26 07/02/24 14:11
APTT 26.6 Sec (23.4-35.0) 07/02/24 14:11
Vital Signs
Vital Signs
Temp Pulse Resp BP Pulse Ox
98.5 F 73 16 129/81 93
07/06/24 04:15 07/06/24 04:30 07/06/24 04:15 07/06/24 04:15 07/06/24 04:30
CT Intake/Output/Weight
07/05/24 07/05/24 07/06/24
06:59 18:59 06:59
Intake Total 20 / 1080
Output Total 1400 / 2510 1050 / 1050
Balance -1380 / -1430 -1050 / -1050
SaO2: 93
Physical Exam
-
General: Awake and AOx3
Cardiovascular: Regular rate & rhythm, No Murmurs and No Rub
Respiratory: Clear and Decreased Breath Sounds
Sternum: Stable
Incision: Clean, Dry and Intact
Extremities: Other (trace edema b/l)
Abdomen: soft, nontender, nondistended, + BM
Data Reviewed
-
Lab Results: Results Reviewed
Medications: Active Meds Reviewed
Chest X-Ray: Report Reviewed and Image Reviewed
ECG: Report Reviewed and Image Reviewed
[2024-07-06 05:12] LABS: Blood Urea Nitrogen 16 mg/dl (9-20); Calcium 8.2 mg/dl (8.4-10.2); Carbon Dioxide 27 mmol/L (22-30); Chloride 105 mmol/L (98-107); Estimated Creatinine Clearance > 125 ml/min; Glucose 96 mg/dl (70-99); Potassium 4.2 mmol/L (3.5-5.1); Sodium 137 mmol/L (135-145); eGFR > 60.00
[2024-07-06] MEDS: TYLENOL 1000 MG PO (05:38)
[2024-07-06 05:48] LABS: Magnesium 2.3 mg/dl (1.6-2.3)
[2024-07-06] MEDS: NOVOLOG FLEXPEN-MODERATE RESISTANCE SC (07:53)
[2024-07-06 08:30] VITALS: BP 120/61
--- NOTE | 2024-07-06 08:42 | W.DCSUMMARY ---
Discharge Summary
Discharge Data
Date of Admission: 07/02/24
Date of Discharge: 07/06/24
-
Pending Results: No
Hospital Course
Primary care physician: Kendra Quintero
Outpatient medical sales: Woody Boo
Inpatient consultants: [facility], pulmonary cut off machine unloader
Procedures:
1. Aortic valve replacement, CABG
Primary Diagnosis:
1. Severe aortic stenosis and we all feel that there is a discrepancy with moderate aortic insufficiency
Secondary Diagnoses:
1. Coronary artery mild stenosis (60% LAD)
2. Class II obesity (BMI 40)
3. Type 2 diabetes (A1c 5.7)
4. Osteoarthritis
5. Hyperlipidemia
6. Obstructive sleep apnea
7. Hypertension
8. Depression
9. Tobacco abuse
10. Centrilobular emphysema
11. RUL lung nodule (5mm - stable from 03/2024 until 06/2024)
12. Postoperative pleural effusion and volume overload
12. Acute postop surgical blood loss anemia
HPI: Jose Ventura is a 58-year-old male who was electively admitted on 07/02/2024 for aortic valve replacement and CABG due to combined aortic stenosis/aortic insufficiency with single-vessel coronary disease.
Hospital course: Patient underwent an aortic valve replacement #25 mm Inspiris tissue valve and CABG x 1 (FRIEND to LAD) with sternal plating by Dr. Mart De La Paz. Patient received no intraoperative blood products. She returned to CVICU on
Levophed, Precedex, and insulin. He is extubated at 1535, the day of surgery. Postop day #1, patient was declined and oxygen weaned to 4 L. Left pleural chest tube was removed. Patient was diuresed and patient ultimately off oxygen on
postoperative day #2. Patient again diuresed on postoperative day #3. Postoperative day #4, patient's weight was down to 125 kg and the patient ambulated in halls without difficulty. Mr. Ventura had no arrhythmias during his hospital stay and
prophylactic amiodarone was discontinued on discharge. Temporary epicardial ventricular pacing wires were cut at skin level. Patient was strongly encouraged to abstain from nicotine lifelong and follow cholesterol-lowering, diabetic carb
controlled diet for weight loss. A two-view chest x-ray was completed on 07/06 and reported no pneumothorax or pleural effusion. Patient is deemed stable for discharge to home with transitional nurse follow-up. Lisinopril and diltiazem were not
resumed on discharge as blood pressure within the normal range. Patient reminded to follow-up with PCP and cardiology for further adjustment.
Home medication changes:
Stop:
Lisinopril and Diltiazem as BP well controlled
Discharge Plan
-
Patient Disposition: Home (Routine Discharge)
Discharge Diagnosis/Procedures: 07/02 AVR/CABG
Condition: Good
Diet: Low Cholesterol and Low Sodium
Activity: No strenuous activity
Driving Restrictions: Not until seen by your Dr
Bathing Restrictions: OK to Shower
Other Services: Cardiac Rehab
Referrals:
CT Transitional Care Nurse [Outside]
(
The Cardiothoracic Transitional Care Nurse will call you to set up a visit in 1-2 days.)
[facility]. Cardiac Rehab [Outside] - 08/07/24 1:00 pm
(Cardiac Rehab Orientation appointment and� First Exercise appointment is on __08/07 at 1:00 pm__
The Cardiac Rehab gym is located on the first floor of the [facility].)
Ruth Kuhn PA-C [Specified Professional Personl] - 08/22/24 10:20 am
Yang Lundberg MD [Active] - in one to two months (Lung nodule discussion)
Kendra Quintero MD, Resident [Family Provider] -
Mart De La Paz MD [Active] - 08/07/24 1:30 pm
Prescriptions:
New
acetaminophen 325 mg Tablet
650 mg PO Q4HPRN PRN (Reason: mild pain,headache,temp >101F ) Qty: 0 0RF
cyclobenzaprine 10 mg Tablet
5 mg PO Q8HPRN PRN (Reason: muscle spasm) Qty: 20 0RF
clopidogrel 75 mg Tablet
75 mg PO DAILY Qty: 30 2RF
pantoprazole 40 mg Tablet,Delayed Release (Dr/Ec)
40 mg PO DAILY Qty: 30 2RF
gabapentin 100 mg Capsule
100 mg PO TID Qty: 30 0RF
oxycodone 5 mg Tablet
5 mg PO Q4HPRN PRN (Reason: severe pain) Qty: 10 0RF
metoprolol succinate [Toprol XL] 25 mg tablet extended release 24 hr
25 mg PO DAILY Qty: 30 1RF
Continued
metformin 500 mg Tablet
500 mg PO DAILY
clonazepam 2 mg Tablet
2 mg PO HS
escitalopram oxalate [Lexapro] 20 mg Tablet
20 mg PO DAILY
Mounjaro 5 mg/0.5 mL Pen Injector
5 mg SC SA
atorvastatin 80 mg Tablet
80 mg PO QPM
nicotine (polacrilex) 4 mg Gum
4 mg BUCCAL Q2H PRN (Reason: quit smoking)
bupropion HCl 150 mg Tablet Extended Release 24 Hr
150 mg PO BID
aspirin 81 mg tablet,chewable
81 mg PO DAILY
Discontinued
lisinopril 5 mg Tablet
5 mg PO DAILY
diltiazem HCl [Matzim LA] 180 mg Tablet Extended Release 24 Hr
180 mg PO BID
Discharge Orders:
Discharge Patient (As Directed); Ordered 07/06/24
Ordered By: Tricia Baez
Discharge Date and Time
Print Language: TAJIK
[2024-07-06] MEDS: LOW STRENGTH ASPIRIN 81 MG PO (08:46)
[2024-07-06] MEDS: GLUCOPHAGE 500 MG PO (08:46)
[2024-07-06] MEDS: LASIX 40 MG IV (08:47)
[2024-07-06] MEDS: NEURONTIN 100 MG PO (08:47)
[2024-07-06] MEDS: PACERONE 200 MG PO (08:47)
[2024-07-06] MEDS: LEXAPRO 20 MG PO (08:47)
[2024-07-06] MEDS: PROTONIX 40 MG PO (08:47)
[2024-07-06] MEDS: TOPROL XL 12.5 MG PO (08:47)
[2024-07-06] MEDS: PLAVIX 75 MG PO (08:47)
[2024-07-06] MEDS: WELLBUTRIN XL (24 hour extended release) 150 MG PO (08:47)
[2024-07-06] MEDS: MAGNESIUM OXIDE 500 MG PO (08:47)
[2024-07-06] MEDS: SENOKOT-S 1 TABLET PO (08:47)
[2024-07-06] MEDS: BACTROBAN 2% OINTMENT 1 APPLIC NASAL (08:48)
--- NOTE | 2024-07-06 10:04 | PTCARENOTE ---
assumed care of pt from previous shift RN, sinus rhythm on tele, VSS, pacing wire removed by CT CORKY. Lungs diminished, pox 94% on RA. + bs, tolerating PO intake, voids independently. PIV x2 flush easily. 2 view cxr completed. plan of care reviewed w
the pt and his .
[2024-07-06 11:11] VITALS: BP 105/88
--- NOTE | 2024-07-06 12:03 | PTCARENOTE ---
tele monitor and IV lines removed. Pt tolerated shower. Discharge instructions, medication list and follow up appointments reviewed with the pt and his . Questions encouraged.
--- NOTE | 2024-07-06 12:19 | CM ---
Addendum entered by AMA Silverio 07/06/24 12:21:
Correction to below: POD#4.
Original Note:
CM following for DC planning needs.
Patient POD#3; plan for DC to home today.
Plan is for home w/ CT Transitional Care RN.
No further needs identified.
== END 2024-07-06 12:05 | disposition home or self-care (01) | DRG 220 ==
LOC: CVICU 04:44
PROVIDERS: Anesthesiology; Clinical Nurse Specialist Acute Care; Nurse Practitioner; ADMITTING PHYSICIAN Thoracic Surgery (Cardiothoracic Vascular Surgery); FAMILY PHYSICIAN Student in an Organized Health Care Education/Training Program; OTHER PHYSICIAN Internal Medicine Cardiovascular Disease; OTHER PHYSICIAN Internal Medicine Critical Care Medicine
PROC: 02100ZC Bypass Coronary Artery, One Artery from Thoracic Artery, Open Approach (ICD-10-PCS; 2024-07-02)
PROC: B24BZZ4 Ultrasonography of Heart with Aorta, Transesophageal (ICD-10-PCS; 2024-07-02)
PROC: 02RF08Z Replacement of Aortic Valve with Zooplastic Tissue, Open Approach (ICD-10-PCS; 2024-07-02)
PROC: 5A1221Z Performance of Cardiac Output, Continuous (ICD-10-PCS; 2024-07-02)
DX: I06.2 Rheumatic aortic stenosis with insufficiency (principal); D62 Acute posthemorrhagic anemia; E87.20 Acidosis, unspecified; I31.0 Chronic adhesive pericarditis; Z68.41 Body mass index [BMI] 40.0-44.9, adult; J90 Pleural effusion, not elsewhere classified; I42.2 Other hypertrophic cardiomyopathy; I25.10 Atherosclerotic heart disease of native coronary artery without angina pectoris; F17.210 Nicotine dependence, cigarettes, uncomplicated; K21.9 Gastro-esophageal reflux disease without esophagitis; K44.9 Diaphragmatic hernia without obstruction or gangrene; K76.0 Fatty (change of) liver, not elsewhere classified; E78.2 Mixed hyperlipidemia; I10 Essential (primary) hypertension; F32.A Depression, unspecified; F41.9 Anxiety disorder, unspecified; G47.33 Obstructive sleep apnea (adult) (pediatric); E66.812 Obesity, class 2; E11.65 Type 2 diabetes mellitus with hyperglycemia; R91.1 Solitary pulmonary nodule; J43.2 Centrilobular emphysema; E87.70 Fluid overload, unspecified; I95.81 Postprocedural hypotension; E87.5 Hyperkalemia; Z79.82 Long term (current) use of aspirin; Z79.84 Long term (current) use of oral hypoglycemic drugs; Z79.899 Other long term (current) drug therapy; Z82.49 Family history of ischemic heart disease and other diseases of the circulatory system; Z98.1 Arthrodesis status
CPT/HCPCS: 88304; 88311; 94727; 94729; 36415; 71045; 71046; 80048; 80053; 81003; 81015; 82248; 82330; 82565; 82805; 82810; 82947; 82962; 83036; 83735; 84132; 84302; 84520; 85014; 85018; 85025; 85027; 85049; 85610; 85730; 86850; 86900; 86901; 86920; 87070; 87077; 87086; 88738; 93005; 93312; 93320; 93325; 93880; 94002; 94010; 94060; 94640

== ENCOUNTER 2024-08-08 16:21 | Outpatient (RCR) | payer MEDICARE, BC, SELFPAY ==
[2024-08-08 15:10] LABS: Glucose - Point of Care 103 mg/dl (70-99)
[2024-08-08 15:52] LABS: Glucose - Point of Care 88 mg/dl (70-99)
== END 2024-08-08 23:59 | disposition home or self-care (01) ==
LOC: CRHB 16:21
PROVIDERS: ATTENDING PHYSICIAN Internal Medicine Cardiovascular Disease
DX: I25.10 Atherosclerotic heart disease of native coronary artery without angina pectoris (principal); Z95.1 Presence of aortocoronary bypass graft; Z95.2 Presence of prosthetic heart valve
CPT/HCPCS: 82962; G0422; G0423

== ENCOUNTER 2024-08-20 17:11 | Outpatient (RCR) | payer MEDICARE, BC, SELFPAY ==
[2024-08-15 17:37] LABS: Glucose - Point of Care 103 mg/dl (70-99)
[2024-08-15 18:27] LABS: Glucose - Point of Care 77 mg/dl (70-99)
[2024-08-15 18:40] LABS: Glucose - Point of Care 85 mg/dl (70-99)
[2024-08-20 17:13] LABS: Glucose - Point of Care 107 mg/dl (70-99)
[2024-08-20 18:00] LABS: Glucose - Point of Care 68 mg/dl (70-99)
[2024-08-20 18:20] LABS: Glucose - Point of Care 97 mg/dl (70-99)
== END 2024-08-20 23:59 | disposition home or self-care (01) ==
LOC: CRHB 17:11
PROVIDERS: ATTENDING PHYSICIAN Internal Medicine Cardiovascular Disease
DX: I25.10 Atherosclerotic heart disease of native coronary artery without angina pectoris (principal); Z95.1 Presence of aortocoronary bypass graft; Z95.2 Presence of prosthetic heart valve
CPT/HCPCS: 82962; G0422; G0423

== ENCOUNTER → 2025-01-18 15:57 | Outpatient (REF) | payer MEDICARE, BC, SELFPAY | LOC: HWRCS 15:57 | PROVIDERS: ATTENDING PHYSICIAN Internal Medicine Cardiovascular Disease; FAMILY PHYSICIAN Student in an Organized Health Care Education/Training Program | DX: Z95.2 Presence of prosthetic heart valve (principal); I35.0 Nonrheumatic aortic (valve) stenosis; I10 Essential (primary) hypertension | CPT/HCPCS: 93306 ==

== ENCOUNTER → 2025-03-29 14:23 | Outpatient (REF) | payer MEDICARE, BC, SELFPAY | LOC: RAD 14:23 | PROVIDERS: ATTENDING PHYSICIAN Internal Medicine Cardiovascular Disease | DX: Z95.1 Presence of aortocoronary bypass graft (principal); I35.1 Nonrheumatic aortic (valve) insufficiency; Z95.3 Presence of xenogenic heart valve | CPT/HCPCS: 71046 ==